=== PATIENT | male | born 1945 | race Caucasian/White ===

== ENCOUNTER 2018-06-24 18:32 | Emergency (ER) | payer OTHER ==
[~2018-06-24] VITALS: Ht 172.7 cm; Wt 113.4 kg
[~2018-06-24 18:32] MED LIST: ASPI-1155 PO; BENA40TA65 PO; CELE200C PO; CIPR-211 PO; ESCI10TA PO; FOLI-43 PO; LIP20 PO; LUTE1CAP4 PO; LYCO10CA2 PO; MULT PO; NEU300 PO; OMEG1CAP18 PO; OMEP20CA10 PO; OXYC-158 PO; TRAM50TA92 PO
[2018-06-24 18:35] VITALS: BP_SYST 156
[2018-06-24] MEDS ORDERED: MORPHINE 4 MG/ML INJ. SYRINGE IVP ONE (20:30)
[2018-06-24] MEDS ORDERED: NACL 0.9% 1,000 ML IV ONE (21:00)
[2018-06-24] MEDS ORDERED: ETOMIDATE 20 MG/ 10 ML VIAL (AMIDATE) IVP ONE (21:30)
[2018-06-24 23:30] VITALS: BP_SYST 142
== END 2018-06-24 23:30 | disposition home or self-care (01) ==
LOC: SED 18:32
DX: S43.014A Anterior dislocation of right humerus, initial encounter (principal); S42.291A Other displaced fracture of upper end of right humerus, initial encounter for closed fracture; W01.190A Fall on same level from slipping, tripping and stumbling with subsequent striking against furniture, initial encounter; Y93.01 Activity, walking, marching and hiking; Y92.008 Other place in unspecified non-institutional (private) residence as the place of occurrence of the external cause; Y99.8 Other external cause status
CPT/HCPCS: 23675; 73020; 73030; 96374; 99152; 99285; J3490; J7030; J2270

== ENCOUNTER 2019-06-11 11:13 | Emergency (ER) | payer OTHER ==
[~2019-06-11] VITALS: Ht 172.7 cm; Wt 117.9 kg
[~2019-06-11 11:13] MED LIST changes: -OMEP20CA10 PO; +OMEP20CA11 PO
[2019-06-11 11:25] VITALS: BP_SYST 96
[2019-06-11 11:56] LABS: BILIRUBIN,URINE NEGATIVE (NEGATIVE); BLOOD, URINE NEGATIVE (NEGATIVE); CLARITY/URINE CLEAR (CLEAR); COLOR,URINE YELLOW (YELLOW); GLUCOSE,URINE NEGATIVE (NEGATIVE); KETONES,URINE NEGATIVE (NEGATIVE); LEUKOCYTE ESTERASE ,URINE NEGATIVE (NEGATIVE); NITRITE, URINE NEGATIVE (NEGATIVE); PH,URINE 5.5 (5.0-8.0); PROTEIN URINE NEGATIVE (NEGATIVE)
[2019-06-11 12:04] LABS: BASOPHILS % (AUTO) 0.3 % (0.0-2.0); EOSINOPHILS # (AUTO) 0.1 K/uL (0.0-0.4); EOSINOPHILS % (AUTO) 1.6 % (0.0-4.0); HEMATOCRIT 41.2 % (36-54); HEMOGLOBIN 13.8 g/dL (14.0-18.0); LYMPHOCYTES # (AUTO) 1.1 K/uL (1.0-5.5); LYMPHOCYTES % (AUTO) 16.8 % (20.5-51.5); MEAN CORPUSCULAR HEMOGLOBIN 31 pg (27-31); MEAN CORPUSCULAR HGB CONC 34 % (32-36); MEAN CORPUSCULAR VOLUME 93 fL (79.0-98.0); MONOCYTES # (AUTO) 0.4 K/uL (0.0-1.0); MONOCYTES % (AUTO) 6.6 % (1.7-9.3); NEUTROPHILS # (AUTO) 4.8 K/uL (1.8-7.7); NEUTROPHILS % (AUTO) 74.7 % (40.0-70.0); PLATELET COUNT (AUTO) 116 K/uL (130-430); RED BLOOD CELL COUNT(AUTO) 4.44 MIL/uL (4.2-6.2); RED CELL DISTRIBUTION WIDTH 14.8 % (9.0-15.0); WHITE BLOOD COUNT (AUTO) 6.5 K/uL (4.8-10.8)
[2019-06-11 12:11] LABS: INR 1.2 (0.80-1.20); PROTHROMBIN TIME 12.3 SECS (9.5-12.5)
[2019-06-11 12:13] LABS: ANION GAP 9 (5-15); CALCIUM 8.9 mg/dL (8.4-11.0); CHLORIDE 108 mmol/L (98-107); CREATININE 1.66 mg/dL (0.55-1.30); GLUCOSE 155 mg/dL (70-99); POTASSIUM 4.4 mmol/L (3.5-5.1); SODIUM SERUM 142 mmol/L (136-145); UREA NITROGEN, BLOOD 34 mg/dL (8-21)
[2019-06-11 12:18] LABS: ALANINE AMINOTRANSFERASE 25 U/L (12-78); ALBUMIN 3.7 g/dL (3.4-4.8); ASPARTATE AMINOTRANSFERASE 27 U/L (10-37); TOTAL BILIRUBIN 0.9 mg/dL (0.0-1.0)
[2019-06-11 13:17] VITALS: BP_SYST 96
== END 2019-06-11 13:17 | disposition home or self-care (01) ==
LOC: SED 11:13
DX: S40.011A Contusion of right shoulder, initial encounter (principal); K21.9 Gastro-esophageal reflux disease without esophagitis; I10 Essential (primary) hypertension; Z86.79 Personal history of other diseases of the circulatory system; Z87.442 Personal history of urinary calculi; Z85.46 Personal history of malignant neoplasm of prostate; Z79.82 Long term (current) use of aspirin; Z79.899 Other long term (current) drug therapy; X58.XXXA Exposure to other specified factors, initial encounter; Y93.89 Activity, other specified; Y92.89 Other specified places as the place of occurrence of the external cause; Y99.8 Other external cause status
CPT/HCPCS: 36415; 71045; 80053; 81003; 85025; 85610-TC; 85730-TC; 99284

== ENCOUNTER 2021-05-10 15:36 | Emergency (ER) | payer BC, OTHER ==
[~2021-05-10] VITALS: Ht 172.7 cm; Wt 102.1 kg
[~2021-05-10 15:36] MED LIST changes: -CIPR-211 PO; +CIPR500T5 PO; -OMEP20CA11 PO; +OMEP20CA15 PO
[2021-05-10 16:06] VITALS: BP_SYST 132
--- NOTE | 2021-05-10 19:40 | NUR ---
CALLED PT NAME IN THE WR,NO RESPONSE.
--- NOTE | 2021-05-10 19:45 | NUR ---
CALLED PT NAME IN THE WR,NO RESPONSE.
--- NOTE | 2021-05-10 19:50 | NUR ---
CALLED PT NAME IN THE WR,NO RESPONSE.
== END 2021-05-10 19:50 | disposition left against medical advice (07) ==
LOC: SED 15:36
DX: R07.1 Chest pain on breathing (principal); Z53.21 Procedure and treatment not carried out due to patient leaving prior to being seen by health care provider
CPT/HCPCS: 71045

== ENCOUNTER 2021-07-14 15:49 | Emergency (ER) | payer BC ==
[~2021-07-14] VITALS: Ht 167.6 cm; Wt 99.8 kg
[2021-07-14 16:00] VITALS: BP_SYST 127
[2021-07-14 19:00] VITALS: BP_SYST 118
[2021-07-28] MEDS ORDERED: COMBIGAN OP (07:46)
[2021-07-28] MEDS ORDERED: XALEYE OP (07:46)
== END 2021-07-14 19:01 | disposition home or self-care (01) ==
LOC: SED 15:49
DX: S72.401A Unspecified fracture of lower end of right femur, initial encounter for closed fracture (principal); M25.561 Pain in right knee; I10 Essential (primary) hypertension; K21.9 Gastro-esophageal reflux disease without esophagitis; Z79.899 Other long term (current) drug therapy; W18.39XA Other fall on same level, initial encounter; Y93.89 Activity, other specified; Y92.89 Other specified places as the place of occurrence of the external cause; Y99.8 Other external cause status
CPT/HCPCS: 73564; 99283

== ENCOUNTER 2022-08-22 17:16 | Inpatient (IN) | payer OTHER ==
[~2022-08-22] VITALS: Ht 170.2 cm; Wt 112.9 kg
[~2022-08-22 17:16] MED LIST changes: +COMBIGAN OP; +XALEYE OP
[2022-08-22 20:04] VITALS: BP_SYST 88
--- NOTE | 2022-08-22 20:49 | NUR ---
Patient wheeled to bed 4 for evaluation and treatment
--- NOTE | 2022-08-22 20:49 | NUR ---
ER Dr.Dela Sofia at bedside examining patient.
[2022-08-22] MEDS ORDERED: CEFEPIME 1 GM in D5W 50 ML IV ONE (21:00)
[2022-08-22] MEDS ORDERED: NS 1000 ML IV.SOLN IV ONE (21:00)
[2022-08-22] MEDS ORDERED: NS 500 ML IV ONE (21:00)
--- NOTE | 2022-08-22 21:00 | NUR ---
# 22 gauge angiocath placed to RIGHT HAND. Use of asceptic technique. Opsite placed over site. Blood return noted. Blood for lab drawn from site. Flushed with 10 cc of normal saline. No evidence of infiltration noted. Patient tolerated well. Addendum: 08/22/22 at 2304 by [email or web address] LEFT HAND
[2022-08-22] MEDS ORDERED: CEFEPIME 1 GM/VIAL (MAXIPIME) ONE (21:05)
[2022-08-22 22:47] LABS: ANION GAP 12 (5-15); CALCIUM 9.5 mg/dL (8.4-11.0); CHLORIDE 107 mmol/L (98-107); CREATININE 1.83 mg/dL (0.55-1.30); GLUCOSE 116 mg/dL (70-99); UREA NITROGEN, BLOOD 17 mg/dL (8-21)
[2022-08-22 22:48] LABS: BASOPHILS # (AUTO) 0.1 K/uL (0.0-0.2); BASOPHILS % (AUTO) 1.5 % (0.0-2.0); EOSINOPHILS % (AUTO) 0.5 % (0.0-4.0); HEMOGLOBIN 15.1 g/dL (14.0-18.0); LYMPHOCYTES # (AUTO) 0.7 K/uL (1.0-5.5); LYMPHOCYTES % (AUTO) 10.2 % (20.5-51.5); MEAN CORPUSCULAR HEMOGLOBIN 31 pg (27-31); MEAN CORPUSCULAR HGB CONC 34 % (32-36); MEAN CORPUSCULAR VOLUME 91 fL (79.0-98.0); MONOCYTES # (AUTO) 0.4 K/uL (0.0-1.0); MONOCYTES % (AUTO) 5.9 % (1.7-9.3); NEUTROPHILS # (AUTO) 5.8 K/uL (1.8-7.7); NEUTROPHILS % (AUTO) 81.9 % (40.0-70.0); PLATELET COUNT (AUTO) 121 K/uL (130-430); RED BLOOD CELL COUNT(AUTO) 4.96 MIL/uL (4.2-6.2); WHITE BLOOD COUNT (AUTO) 7.1 K/uL (4.8-10.8)
[2022-08-22 22:55] LABS: ALANINE AMINOTRANSFERASE 48 U/L (12-78); ALBUMIN 3.5 g/dL (3.4-4.8); ASPARTATE AMINOTRANSFERASE 45 U/L (10-37); TOTAL BILIRUBIN 0.8 mg/dL (0.0-1.0)
--- NOTE | 2022-08-22 22:59 | NUR ---
# 16 FR In and Out catheter with use of sterile technique. Immediate return of 50 ml DARK urine noted. Urine sample collected and sent to lab. Pt tolerated procedure WELL.Patient unable to toilet self.
--- NOTE | 2022-08-22 23:00 | NUR ---
URINE COLLECTED AND WALKED TO LAB
--- NOTE | 2022-08-22 23:03 | NUR ---
PT TAKEN TO RADIOLOGY
--- NOTE | 2022-08-22 23:48 | NUR ---
covid and flu walked to lab
[2022-08-23 00:14] LABS: BILIRUBIN,URINE 1+ (NEGATIVE); BLOOD, URINE 1+ (NEGATIVE); CLARITY/URINE CLEAR (CLEAR); COLOR,URINE YELLOW (YELLOW); GLUCOSE,URINE NEGATIVE (NEGATIVE); KETONES,URINE TRACE (NEGATIVE); LEUKOCYTE ESTERASE ,URINE NEGATIVE (NEGATIVE); NITRITE, URINE NEGATIVE (NEGATIVE); PH,URINE 6.5 (5.0-8.0); PROTEIN URINE 2+ (NEGATIVE); UROBILINOGEN,URINE 0.2 (0.2-1.0)
[2022-08-23] MEDS ORDERED: BUPR300T46 PO (00:30)
[2022-08-23] MEDS ORDERED: AMLO5TAB92 PO (00:30)
[2022-08-23] MEDS ORDERED: ATOR40TA68 PO (00:30)
[2022-08-23] MEDS ORDERED: TAMS0.4C96 PO (00:30)
[2022-08-23] MEDS ORDERED: GABA300T26 (00:30)
[2022-08-23] MEDS ORDERED: ESCI-6 PO (00:30)
[2022-08-23] MEDS ORDERED: GABAPENTIN (00:30)
[2022-08-23] MEDS ORDERED: OLAN5TAB71 PO (00:30)
[2022-08-23] MEDS ORDERED: CELE-85 PO (00:30)
[2022-08-23] MEDS ORDERED: CARV3.1246 PO (00:30)
[2022-08-23] MEDS ORDERED: OMEP40CA20 PO (00:30)
[2022-08-23 01:15] LABS: BACTERIA,URINE FEW /HPF (None Seen); MUCUS,URINE None Seen /LPF (None Seen); RBC,URINE 0-3 /HPF (0-3); WBC,URINE 0-3 /HPF (0-3)
--- NOTE | 2022-08-23 01:17 | NUR ---
Patient resting quietly. No acute distress noted. Vital signs within normal range.
[2022-08-23] MEDS ORDERED: OSELTAMIVIR PHOSPHATE 75 MG CAPSULE PO ONE (01:30)
--- NOTE | 2022-08-23 02:05 | NUR ---
Admit bed requested Patient will be admitted to care of . Admitted to TELE unit. Diagnosis UTI & INFLUENZA A Inpatient (Yes or No) YES Observation (Yes or No) NO Orientation concerns or request close to nursing station (Yes or No) NO Covid Status NEG On vent or bipap NO Isolation requirements YES Needs a sitter NO From Home (Yes or if No enter name of facility) YES Requires Dialysis (Yes or No) NO Med Rec Completed (Yes of No) YES
[2022-08-23] MEDS: NACL 0.9% 1,000 ML IV SCH ×2 (02:45→14:30)
--- NOTE | 2022-08-23 03:05 | NUR ---
Patient resting quietly. No acute distress noted. Vital signs within normal range.
--- NOTE | 2022-08-23 05:26 | NUR ---
Patient resting quietly. No acute distress noted. Vital signs within normal range. No concerns at this time.
--- NOTE | 2022-08-23 07:13 | NUR ---
TRANSFER OF CARE AT THIS TIME, REPORT GIVEN TO BRENDEN MCCORMICK
--- NOTE | 2022-08-23 07:20 | NUR ---
PT STABLE. RESUMED CARE AND TOOK REPORT FROM VICKI WILCOX.
--- NOTE | 2022-08-23 11:46 | NUR ---
Patient will be admitted to care of DR HOLLIDAY. Admitted to TELE unit. Will go to room 116B. Belongings list completed. Complete and up to date summary report printed. SBAR report to be given at bedside with opportunity for questions.
[2022-08-23 12:28] VITALS: BP_SYST 145
[2022-08-23] MEDS ORDERED: ONDANSETRON HCL 4 MG/2 ML VIAL IVP PRN (13:00)
[2022-08-23 16:00] VITALS: BP_SYST 138; BP_SYST 145
[2022-08-23] MEDS ORDERED: OMEPRAZOLE Non-Formulary 20 MG CAPSULE.DR PO SCH ×2 (18:15→18:30)
[2022-08-23] MEDS ORDERED: TAMSULOSIN HCL 0.4 MG CAP PO SCH (18:15)
[2022-08-23] MEDS ORDERED: BUPROPION HCL PO SCH (18:30)
--- NOTE | 2022-08-23 18:41 | NUR ---
SPOKE WITH PT AND OBTAINED MED LIST REVIEWED MED LIST WITH DR HOLLIDAY MEDICATIONS RECONCILED ORDERED
[2022-08-23] MEDS ORDERED: COMMUNICATION ORDER XX ONE (19:15)
--- NOTE | 2022-08-23 19:30 | NUR ---
OPENING NOTE Pt is awake lying in bed. No s/s of respiratory distress. Breathing even and unlabored on RA. IV site intact and patent with fluids running at ordered rate. Fall and safety precautions in place with bed in lowest position, bed alarm on, and call light within reach
[2022-08-23 20:00] VITALS: BP_SYST 132
[2022-08-23] MEDS ORDERED: ESCITALOPRAM OXALATE 10 MG TABLET PO SCH ×2 (21:00)
[2022-08-23] MEDS ORDERED: OLANZapine 5 MG TABLET PO SCH (21:00)
[2022-08-23] MEDS ORDERED: BENAZEPRIL HCL 20 MG TABLET (LOTENSIN) PO SCH ×2 (21:00)
[2022-08-23] MEDS ORDERED: CARVEDILOL 3.125 MG TABLET (COREG) PO SCH (21:00)
[2022-08-23] MEDS: OSELTAMIVIR PHOSPHATE 6 MG/1 ML, 60 ML SUSP PO SCH (21:00)
[2022-08-23] MEDS: CEFEPIME 1 GM in D5W 50 ML IV SCH (21:37)
[2022-08-23] MEDS: OLANZapine 5 MG TABLET PO SCH (21:38)
[2022-08-23] MEDS: lisinopriL 20 MG TABLET PO SCH (21:38)
[2022-08-23] MEDS: CARVEDILOL 3.125 MG TABLET (COREG) PO SCH (21:39)
[2022-08-24] VITALS: BP_SYST 153
--- NOTE | 2022-08-24 00:15 | NUR ---
ROUNDS Pt lying in bed. Incontinent of urine, changed and reposition. No s/s of acute distress. Fall and safety checks in place
--- NOTE | 2022-08-24 02:57 | NUR ---
CONSULTATION PAGED REASON FOR CONSULTATION: ac on ckd WAS CONSULT CALLED? Y PERSON WHO WAS NOTIFIED: Maribel CONSULTING PHYSICIAN: Dr. Subramanian (Dr. Mak is credit administration manager) REQUESTING PHYSICIAN: Dr. Zapata
[2022-08-24] MEDS: NACL 0.9% 1,000 ML IV SCH (03:00)
[2022-08-24 06:58] LABS: BASOPHILS % (AUTO) 0.4 % (0.0-2.0); EOSINOPHILS # (AUTO) 0.1 K/uL (0.0-0.4); EOSINOPHILS % (AUTO) 1.4 % (0.0-4.0); HEMATOCRIT 43.1 % (36-54); HEMOGLOBIN 14.5 g/dL (14.0-18.0); LYMPHOCYTES # (AUTO) 1.1 K/uL (1.0-5.5); MEAN CORPUSCULAR HEMOGLOBIN 31 pg (27-31); MEAN CORPUSCULAR HGB CONC 34 % (32-36); MEAN CORPUSCULAR VOLUME 91 fL (79.0-98.0); MONOCYTES # (AUTO) 0.5 K/uL (0.0-1.0); MONOCYTES % (AUTO) 8.2 % (1.7-9.3); NEUTROPHILS # (AUTO) 4.2 K/uL (1.8-7.7); PLATELET COUNT (AUTO) 128 K/uL (130-430); RED BLOOD CELL COUNT(AUTO) 4.73 MIL/uL (4.2-6.2); RED CELL DISTRIBUTION WIDTH 15.2 % (9.0-15.0); WHITE BLOOD COUNT (AUTO) 5.9 K/uL (4.8-10.8)
--- NOTE | 2022-08-24 07:22 | NUR ---
CLOSING NOTE Pt is awake lying in bed. No s/s of respiratory distress. Breathing even and unlabored on RA. IV site intact and patent with fluids running at ordered rate. All needs met throughout shift. Fall and safety precautions in place with bed in lowest position, bed alarm on, and call light within reach
[2022-08-24 07:30] VITALS: BP_SYST 146
--- NOTE | 2022-08-24 07:30 | NUR ---
OPENING NOTE Patient in bed resting. A/O x 3, Kazakh speaking, Hard of Hearing, legally blind. No pain, no SOB, no distress noted at this time. IV to R hand 22 g, patent on infusion pump. All needs met at this time, bed locked in lowest position, call light within reach. Will continue to monitor.
[2022-08-24 07:48] LABS: ANION GAP 8 (5-15); CALCIUM 8.9 mg/dL (8.4-11.0); CHLORIDE 108 mmol/L (98-107); GLUCOSE 95 mg/dL (70-99); UREA NITROGEN, BLOOD 15 mg/dL (8-21)
[2022-08-24 07:51] LABS: ALANINE AMINOTRANSFERASE 46 U/L (12-78); ALBUMIN 3.7 g/dL (3.4-4.8); ASPARTATE AMINOTRANSFERASE 44 U/L (10-37); TOTAL BILIRUBIN 0.9 mg/dL (0.0-1.0)
[2022-08-24] MEDS: TAMSULOSIN HCL 0.4 MG CAP PO SCH (08:21)
[2022-08-24] MEDS: buPROPion HCL 150 MG XL TAB PO SCH (08:22)
[2022-08-24] MEDS: MULTIVITAMINS TAB 1 TABLET PO SCH (08:22)
[2022-08-24] MEDS: PANTOPRAZOLE SODIUM 40 MG TAB PO SCH (08:22)
[2022-08-24] MEDS: ASCORBIC ACID 500 MG TABLET PO SCH (08:22)
[2022-08-24] MEDS: CLOPIDOGREL BISULFATE 75 MG TABLET PO SCH (08:22)
[2022-08-24] MEDS: lisinopriL 20 MG TABLET PO SCH ×2 (08:22→21:22)
[2022-08-24] MEDS: OSELTAMIVIR PHOSPHATE 6 MG/1 ML, 60 ML SUSP PO SCH ×2 (08:23→21:00)
[2022-08-24] MEDS: CARVEDILOL 3.125 MG TABLET (COREG) PO SCH ×2 (08:23→21:21)
[2022-08-24] MEDS ORDERED: ATORVASTATIN 20 MG TABLET PO SCH (09:00)
[2022-08-24] MEDS ORDERED: CITALOPRAM HYDROBROMIDE 20 MG TABLET PO SCH (09:00)
[2022-08-24] MEDS ORDERED: MULTIVITAMINS TAB 1 TABLET PO SCH (09:00)
[2022-08-24 10:54] VITALS: BP_SYST 148
--- NOTE | 2022-08-24 12:00 | NUR ---
Patient Rounds Patient in bed resting. No pain, no SOB, no distress noted at this time. All needs met at this time, bed locked in lowest position, call light within reach. Will continue to monitor.
[2022-08-24 17:16] VITALS: BP_SYST 137
[2022-08-24] MEDS: RIVAROXABAN 15 MG TABLET PO SCH (17:28)
--- NOTE | 2022-08-24 18:48 | NUR ---
CLOSING NOTE Patient in bed resting. A/O x 3, Mongolian speaking, Hard of Hearing, legally blind. No pain, no SOB, no distress noted at this time. IV to R hand 22 g, patent on infusion pump. All needs met at this time, bed locked in lowest position, call light within reach. Will endorse to medical tech nurse.
--- NOTE | 2022-08-24 19:00 | NUR ---
RECEIVED PT IN BED.AOX3.ON RA.NOT IN RESPIRATORY DISTRESS NOTED.NO COMPLAINT OF PAIN NOTED.IVL R HAND G 22,PATENT AND INTACT.BED IN LOWEST POSITION.BEDSIDE TABLE AND CALL LIGHT ARE WITHIN REACH.ALL NEEDS ARE MET AT THIS TIME.
[2022-08-24 20:00] VITALS: BP_SYST 134
[2022-08-24] MEDS ORDERED: BRIMONIDINE TAR. 0.2%/TIMOLOL 0.5% EYE DROPS 5 ML OP SCH (21:00)
--- NOTE | 2022-08-24 21:00 | NUR ---
SCHEDULED MEDICATIONS GIVEN ORDERED.
[2022-08-24] MEDS: CEFEPIME 1 GM in D5W 50 ML IV SCH (21:20)
[2022-08-24] MEDS: LATANOPROST 2.5 ML DROPS (XALATAN) OP SCH (21:20)
[2022-08-24] MEDS: TIMOLOL MALEATE 0.5% OPHTHALMIC DROPS 5 ML OP SCH (21:20)
[2022-08-24] MEDS: BRIMONIDINE TARTRATE 0.2% 5 mL EYE DROPS OP SCH (21:20)
[2022-08-24] MEDS: OLANZapine 5 MG TABLET PO SCH (21:22)
[2022-08-24] MEDS: GABAPENTIN 300 MG CAPSULE PO SCH (21:22)
[2022-08-24] MEDS: traMADol HCL HCL 50 MG TABLET (ULTRAM) PO SCH (21:23)
--- NOTE | 2022-08-25 | NUR ---
PT IS ASLEEP.NOT IN RESPIRATORY DISTRESS NOTED
[2022-08-25 00:13] VITALS: BP_SYST 127
--- NOTE | 2022-08-25 04:00 | NUR ---
CHANGED AND REPOSITIONED PT.ALL NEEDS ARE MET AT THIS TIME.
--- NOTE | 2022-08-25 06:42 | NUR ---
PT HAS EVEN AND UNLABORED BREATHING NOTED.OBSERVED SAFETY PRECAUTIONS.BED IN LOWEST POSITION.BEDSIDE TABLE AND CALL LIGHT ARE WITHIN REACH.
[2022-08-25] MEDS ORDERED: OMEPRAZOLE Non-Formulary 20 MG CAPSULE.DR PO SCH (07:00)
[2022-08-25 07:35] VITALS: BP_SYST 175
[2022-08-25] MEDS ORDERED: ESCITALOPRAM OXALATE 10 MG TABLET PO SCH (09:00)
[2022-08-25] MEDS ORDERED: amLODIPine BESYLATE 5 MG TABLET PO SCH (09:00)
[2022-08-25] MEDS ORDERED: ATORVASTATIN 20 MG TABLET PO SCH (09:00)
[2022-08-25] MEDS: OSELTAMIVIR PHOSPHATE 6 MG/1 ML, 60 ML SUSP PO SCH ×2 (09:49→22:57)
[2022-08-25] MEDS: lisinopriL 20 MG TABLET PO SCH ×2 (09:50→22:45)
[2022-08-25] MEDS: TAMSULOSIN HCL 0.4 MG CAP PO SCH (09:50)
[2022-08-25] MEDS: CLOPIDOGREL BISULFATE 75 MG TABLET PO SCH (09:50)
[2022-08-25] MEDS: CARVEDILOL 3.125 MG TABLET (COREG) PO SCH ×2 (09:50→22:46)
[2022-08-25] MEDS: ASPIRIN 81 MG TAB.CHEW PO SCH (09:51)
[2022-08-25] MEDS: ASCORBIC ACID 500 MG TABLET PO SCH (09:51)
[2022-08-25] MEDS: MULTIVITAMINS TAB 1 TABLET PO SCH (09:51)
[2022-08-25] MEDS: traMADol HCL HCL 50 MG TABLET (ULTRAM) PO SCH ×2 (09:51→22:44)
[2022-08-25] MEDS: PANTOPRAZOLE SODIUM 40 MG TAB PO SCH (09:51)
[2022-08-25] MEDS: GABAPENTIN 300 MG CAPSULE PO SCH ×2 (09:51→22:42)
[2022-08-25] MEDS: CITALOPRAM HYDROBROMIDE 20 MG TABLET PO SCH (09:51)
[2022-08-25] MEDS: ATORVASTATIN 20 MG TABLET PO SCH (09:52)
[2022-08-25] MEDS: buPROPion HCL 150 MG XL TAB PO SCH (09:52)
[2022-08-25] MEDS: BRIMONIDINE TARTRATE 0.2% 5 mL EYE DROPS OP SCH ×3 (09:53→22:54)
[2022-08-25] MEDS: TIMOLOL MALEATE 0.5% OPHTHALMIC DROPS 5 ML OP SCH ×2 (09:53→22:54)
--- NOTE | 2022-08-25 11:30 | NUR ---
My charge nurse Ana found him trying to get out of bed. Patient was redirected and told to stay in bed to press call light when in need of assistance. Patient was noted to be wet, he was cleaned and linens changed. Patient's bed was locked in lowest position with bed alarm in place and call light within reach. All needs met, safety precautions in place. Will continue to monitor.
[2022-08-25 13:04] VITALS: BP_SYST 132
--- NOTE | 2022-08-25 16:10 | NUR ---
Patient Rounds Patient in bed resting. No pain, no SOB, no distress noted at this time. All needs met at this time, bed locked in lowest position, bed alarm on, call light within reach. Will continue to monitor.
[2022-08-25 17:22] VITALS: BP_SYST 109
[2022-08-25] MEDS: RIVAROXABAN 15 MG TABLET PO SCH (17:51)
--- NOTE | 2022-08-25 18:50 | NUR ---
CLOSING NOTE Patient in bed resting. A/O x 3, Uzbek speaking, Hard of Hearing, legally blind. No pain, no SOB, no distress noted at this time. IV to R hand 22 g, patent on infusion pump. All needs met at this time, bed locked in lowest position, call light within reach. Will endorse to digital media coordinator nurse.
[2022-08-25 20:38] VITALS: BP_SYST 103
[2022-08-25] MEDS: CEFEPIME 1 GM in D5W 50 ML IV SCH (22:41)
[2022-08-25] MEDS: OLANZapine 5 MG TABLET PO SCH (22:42)
[2022-08-25] MEDS: amLODIPine BESYLATE 5 MG TABLET PO SCH (22:47)
[2022-08-25] MEDS: LATANOPROST 2.5 ML DROPS (XALATAN) OP SCH (22:55)
[2022-08-26 00:13] VITALS: BP_SYST 112
--- NOTE | 2022-08-26 08:00 | NUR ---
RN NOTES PATIENT AWAKE AND ALERT, NOT IN ACUTE DISTRESS. A.FIBRILLATION ON THE MONITOR.
[2022-08-26] MEDS: GABAPENTIN 300 MG CAPSULE PO SCH ×2 (09:58→20:35)
[2022-08-26] MEDS: TAMSULOSIN HCL 0.4 MG CAP PO SCH (09:59)
[2022-08-26] MEDS: ASCORBIC ACID 500 MG TABLET PO SCH (09:59)
[2022-08-26] MEDS: MULTIVITAMINS TAB 1 TABLET PO SCH (09:59)
[2022-08-26] MEDS: amLODIPine BESYLATE 5 MG TABLET PO SCH ×2 (10:05→20:39)
[2022-08-26] MEDS: traMADol HCL HCL 50 MG TABLET (ULTRAM) PO SCH ×2 (10:06→20:36)
[2022-08-26] MEDS: ASPIRIN 81 MG TAB.CHEW PO SCH (10:06)
[2022-08-26] MEDS: PANTOPRAZOLE SODIUM 40 MG TAB PO SCH (10:06)
[2022-08-26] MEDS: buPROPion HCL 150 MG XL TAB PO SCH (10:06)
[2022-08-26] MEDS: CARVEDILOL 3.125 MG TABLET (COREG) PO SCH ×2 (10:07→20:38)
[2022-08-26] MEDS: CITALOPRAM HYDROBROMIDE 20 MG TABLET PO SCH (10:09)
[2022-08-26] MEDS: TIMOLOL MALEATE 0.5% OPHTHALMIC DROPS 5 ML OP SCH ×2 (10:15→20:42)
[2022-08-26] MEDS: BRIMONIDINE TARTRATE 0.2% 5 mL EYE DROPS OP SCH ×3 (10:16→20:42)
[2022-08-26] MEDS: OSELTAMIVIR PHOSPHATE 6 MG/1 ML, 60 ML SUSP PO SCH ×2 (10:29→20:41)
[2022-08-26] MEDS: ATORVASTATIN 20 MG TABLET PO SCH (10:30)
[2022-08-26] MEDS: lisinopriL 20 MG TABLET PO SCH ×2 (10:30→20:40)
[2022-08-26 12:35] VITALS: BP_SYST 113
[2022-08-26 12:40] VITALS: BP_SYST 100
[2022-08-26] MEDS ORDERED: LEVO-62 PO (15:21)
--- NOTE | 2022-08-26 15:45 | NUR ---
RN NOTES FAMILY AT BEDSIDE,UPDATED ON PT PRESENT CONDITION. EXPRESSED CONCERN THAT PT IS NOT READY/STABLE TO GO HOME. DR.CHIANG TODD.
--- NOTE | 2022-08-26 16:00 | NUR ---
RN NOTES AT BEDSIDE,SPOKE TO PT FAMILY. NEUROLOGY WILL BE CONSULTED ORDERED.
[2022-08-26 16:35] VITALS: BP_SYST 111
[2022-08-26 16:40] VITALS: BP_SYST 114
--- NOTE | 2022-08-26 16:56 | NUR ---
[facility]/HCP CM MS EVANGELIST ANDRADE WAS CALLED, RE: [facility], PT. LEFT A MESSAGE. LAURA, FROM [facility]/HCP CALLED BACK FOR HOME HEALTH INFO -- [facility] [phone] FOR HOME HEALTH PT.
--- NOTE | 2022-08-26 17:09 | NUR ---
CONSULTATION PAGED/CALLED Reason for Consultation: [] ENCEPHALOPATHY Person Who was Notified: [] TEXTED CONSULT TO DR Marcell FONSECA Consulting Physician: [] DR Marcell FONSECA Career Development Coordinator/Teacher Specialty: [] NEURO Ordering Physician: [] DR BARRETT
[2022-08-26] MEDS: RIVAROXABAN 15 MG TABLET PO SCH (17:20)
--- NOTE | 2022-08-26 18:00 | NUR ---
RN NOTES REPOSITIONED FOR COMFORT, ASSISTED FOR DINNER.
[2022-08-26 20:00] VITALS: BP_SYST 98
[2022-08-26] MEDS: CEFEPIME 1 GM in D5W 50 ML IV SCH (20:34)
[2022-08-26] MEDS: OLANZapine 5 MG TABLET PO SCH (20:35)
[2022-08-26] MEDS: LATANOPROST 2.5 ML DROPS (XALATAN) OP SCH (20:41)
--- NOTE | 2022-08-26 20:47 | NUR ---
RECEIVED PT LYING IN BED, NO DISTRESS NOTED, DENIES PAIN. AAOX2, RA O2 SAT 97% DROPLET PRECAUTION MAINTAINED.
[2022-08-27 00:35] VITALS: BP_SYST 124
--- NOTE | 2022-08-27 07:54 | NUR ---
OPENING NOTES RECEIVED BEDSIDE SBAR FROM PM SHIFT NURSE, PATIENT RESTING WELL IN BED NO DISTRESS, ALL NEEDS BEING MEET, BED LOCKED AND IN LOW POSITION CALL LIGHT IN REACH. WILL CONT TO MONITOR PATIENT PER ORDERS
[2022-08-27 08:07] LABS: ALANINE AMINOTRANSFERASE 30 U/L (12-78); ALBUMIN 3.2 g/dL (3.4-4.8); ANION GAP 9 (5-15); ASPARTATE AMINOTRANSFERASE 27 U/L (10-37); CALCIUM 8.4 mg/dL (8.4-11.0); CHLORIDE 104 mmol/L (98-107); CREATININE 1.27 mg/dL (0.55-1.30); GLUCOSE 108 mg/dL (70-99); UREA NITROGEN, BLOOD 21 mg/dL (8-21)
[2022-08-27 08:18] LABS: BASOPHILS % (AUTO) 0.5 % (0.0-2.0); EOSINOPHILS # (AUTO) 0.1 K/uL (0.0-0.4); EOSINOPHILS % (AUTO) 1.1 % (0.0-4.0); HEMATOCRIT 40.8 % (36-54); LYMPHOCYTES # (AUTO) 1.5 K/uL (1.0-5.5); LYMPHOCYTES % (AUTO) 20.3 % (20.5-51.5); MEAN CORPUSCULAR HEMOGLOBIN 31 pg (27-31); MEAN CORPUSCULAR HGB CONC 34 % (32-36); MEAN CORPUSCULAR VOLUME 91 fL (79.0-98.0); MONOCYTES # (AUTO) 1.1 K/uL (0.0-1.0); MONOCYTES % (AUTO) 14.1 % (1.7-9.3); NEUTROPHILS # (AUTO) 4.9 K/uL (1.8-7.7); PLATELET COUNT (AUTO) 107 K/uL (130-430); RED BLOOD CELL COUNT(AUTO) 4.49 MIL/uL (4.2-6.2); RED CELL DISTRIBUTION WIDTH 14.7 % (9.0-15.0); WHITE BLOOD COUNT (AUTO) 7.6 K/uL (4.8-10.8)
[2022-08-27 08:32] VITALS: BP_SYST 110
[2022-08-27] MEDS: ATORVASTATIN 20 MG TABLET PO SCH (09:37)
[2022-08-27] MEDS: GABAPENTIN 300 MG CAPSULE PO SCH ×2 (09:37→20:43)
[2022-08-27] MEDS: lisinopriL 20 MG TABLET PO SCH ×2 (09:38→23:14)
[2022-08-27] MEDS: traMADol HCL HCL 50 MG TABLET (ULTRAM) PO SCH ×2 (09:39→20:43)
[2022-08-27] MEDS: amLODIPine BESYLATE 5 MG TABLET PO SCH ×2 (09:39→21:00)
[2022-08-27] MEDS: CARVEDILOL 3.125 MG TABLET (COREG) PO SCH ×2 (09:40→20:44)
[2022-08-27] MEDS: MULTIVITAMINS TAB 1 TABLET PO SCH (09:41)
[2022-08-27] MEDS: CITALOPRAM HYDROBROMIDE 20 MG TABLET PO SCH (09:41)
[2022-08-27] MEDS: buPROPion HCL 150 MG XL TAB PO SCH (09:41)
[2022-08-27] MEDS: ASCORBIC ACID 500 MG TABLET PO SCH (09:41)
[2022-08-27] MEDS: PANTOPRAZOLE SODIUM 40 MG TAB PO SCH (09:41)
[2022-08-27] MEDS: ASPIRIN 81 MG TAB.CHEW PO SCH (09:42)
[2022-08-27] MEDS: TAMSULOSIN HCL 0.4 MG CAP PO SCH (09:42)
[2022-08-27] MEDS: OSELTAMIVIR PHOSPHATE 6 MG/1 ML, 60 ML SUSP PO SCH ×2 (09:48→21:00)
[2022-08-27] MEDS: TIMOLOL MALEATE 0.5% OPHTHALMIC DROPS 5 ML OP SCH ×2 (09:49→21:00)
[2022-08-27] MEDS: BRIMONIDINE TARTRATE 0.2% 5 mL EYE DROPS OP SCH ×3 (09:49→21:00)
--- NOTE | 2022-08-27 12:30 | NUR ---
PATIENT REMAINS STABLE, VERY CONFUSED SEEING DOGS/PUPPIES, ASKING ME TO TAKE TO TRASH OUT TO THE TRAILER, VS WNL, WILL CONT TO MONITOR PT BED LOCKED AND IN LOW POSITION CALL LIGHT IN REACH.
[2022-08-27] MEDS: RIVAROXABAN 15 MG TABLET PO SCH (18:13)
[2022-08-27 18:31] VITALS: BP_SYST 114
[2022-08-27 19:20] VITALS: BP_SYST 129
--- NOTE | 2022-08-27 19:20 | NUR ---
PM ASSESSMENT; -Pt is a/ox1-2 slurred speech, resting in bed comfortably. Droplet isolation maintains. Fall precaution in place. Unable to discuss poc d/t cognitive limitation, no family available. Bed alarmed, side rails x3, call light w/in reach. Cont to monitor pt.
[2022-08-27] MEDS: OLANZapine 5 MG TABLET PO SCH (20:43)
[2022-08-27] MEDS: LATANOPROST 2.5 ML DROPS (XALATAN) OP SCH (21:00)
[2022-08-27] MEDS: CEFEPIME 1 GM in D5W 50 ML IV SCH (23:17)
[2022-08-28] VITALS: BP_SYST 98
--- NOTE | 2022-08-28 01:46 | NUR ---
ROUNDS; -Pt is asleep. No s/s any pain,sob,or any acute distress noted. All side railsx3, Bed alarmed, side rails x3, call light w/in reach. Cont to monitor pt.
--- NOTE | 2022-08-28 06:53 | NUR ---
CLOSING NOTES; -Pt is resting in bed comfortably. NO s/s any pain,sob,or any acute distress noted. Maintains droplet isolation entire shift. Bed alarmed, side rails x3, call light w/in reach. Pt's condition stable entire shift and no seizure activity noted. Will endorse to next nurse to cont care.
--- NOTE | 2022-08-28 07:30 | NUR ---
OPENING NOTES: RECEIVED BEDSIDE SBAR FROM PM SHIFT NURSE PATIENT RESTING WELL, NO DISTRESS BED LOCKED AND AT LOW POSITION CALL LIGHT IN REACH WILL CONT TO MONITOR PATIENT PER ORDERS.
[2022-08-28 08:04] VITALS: BP_SYST 109
[2022-08-28] MEDS: buPROPion HCL 150 MG XL TAB PO SCH (10:00)
[2022-08-28] MEDS: ASPIRIN 81 MG TAB.CHEW PO SCH (10:00)
[2022-08-28] MEDS: PANTOPRAZOLE SODIUM 40 MG TAB PO SCH (10:00)
[2022-08-28] MEDS: CITALOPRAM HYDROBROMIDE 20 MG TABLET PO SCH (10:01)
[2022-08-28] MEDS: ASCORBIC ACID 500 MG TABLET PO SCH (10:01)
[2022-08-28] MEDS: TAMSULOSIN HCL 0.4 MG CAP PO SCH (10:01)
[2022-08-28] MEDS: MULTIVITAMINS TAB 1 TABLET PO SCH (10:01)
[2022-08-28] MEDS: traMADol HCL HCL 50 MG TABLET (ULTRAM) PO SCH ×2 (10:01→20:50)
[2022-08-28] MEDS: ATORVASTATIN 20 MG TABLET PO SCH (10:01)
[2022-08-28] MEDS: CARVEDILOL 3.125 MG TABLET (COREG) PO SCH ×2 (10:02→20:51)
[2022-08-28] MEDS: lisinopriL 20 MG TABLET PO SCH ×2 (10:02→20:50)
[2022-08-28] MEDS: OSELTAMIVIR PHOSPHATE 6 MG/1 ML, 60 ML SUSP PO SCH (10:03)
[2022-08-28] MEDS: GABAPENTIN 300 MG CAPSULE PO SCH ×2 (10:03→20:51)
[2022-08-28] MEDS: amLODIPine BESYLATE 5 MG TABLET PO SCH ×2 (10:03→20:51)
[2022-08-28] MEDS: BRIMONIDINE TARTRATE 0.2% 5 mL EYE DROPS OP SCH ×3 (10:12→21:00)
[2022-08-28] MEDS: TIMOLOL MALEATE 0.5% OPHTHALMIC DROPS 5 ML OP SCH ×2 (10:13→21:00)
[2022-08-28 12:30] VITALS: BP_SYST 122
--- NOTE | 2022-08-28 12:30 | NUR ---
ROUNDS: PATIENT REMAIN STABLE NO DISTRESS RESTING WELL IN BED BED LOCKED AND IN LOW POSITION CALL LIGHT IN REACH WILL CONT TO MONITOR PATIENT
--- NOTE | 2022-08-28 18:33 | NUR ---
CLOSING NOTES: PATIENT REMAINS STABLE NO DISTRESS, ALL NEEDS WHERE MEET PER ORDERS, BED LOCKED AND AT LOW POSITION CALL LIGHT IN REACH WILL GIVE PM SHIFT NURSE BEDSIDE SBAR.
[2022-08-28 18:35] VITALS: BP_SYST 115
[2022-08-28] MEDS: RIVAROXABAN 15 MG TABLET PO SCH (18:46)
[2022-08-28 19:46] VITALS: BP_SYST 135
[2022-08-28] MEDS: OLANZapine 5 MG TABLET PO SCH (20:50)
[2022-08-28] MEDS: CEFEPIME 1 GM in D5W 50 ML IV SCH (20:52)
[2022-08-28] MEDS: LATANOPROST 2.5 ML DROPS (XALATAN) OP SCH (21:00)
[2022-08-29] VITALS: BP_SYST 128
--- NOTE | 2022-08-29 07:29 | NUR ---
OPENING NOTES: RECEIVED BEDSIDE SBAR FROM PM SHIFT NURSE, PATIENT REMAINS STABLE RESTING WELL IN BED, NO DISTRESS ALL NEEDS BEING KNOWN, BED AT LOCKED AND LOW POSITION CALL LIGHT IN REACH
[2022-08-29 08:19] VITALS: BP_SYST 158
[2022-08-29] MEDS: TAMSULOSIN HCL 0.4 MG CAP PO SCH (10:04)
[2022-08-29] MEDS: ASCORBIC ACID 500 MG TABLET PO SCH (10:04)
[2022-08-29] MEDS: lisinopriL 20 MG TABLET PO SCH ×2 (10:05→21:00)
[2022-08-29] MEDS: amLODIPine BESYLATE 5 MG TABLET PO SCH ×2 (10:05→21:00)
[2022-08-29] MEDS: MULTIVITAMINS TAB 1 TABLET PO SCH (10:06)
[2022-08-29] MEDS: ASPIRIN 81 MG TAB.CHEW PO SCH (10:06)
[2022-08-29] MEDS: buPROPion HCL 150 MG XL TAB PO SCH (10:06)
[2022-08-29] MEDS: CARVEDILOL 3.125 MG TABLET (COREG) PO SCH ×2 (10:06→21:00)
[2022-08-29] MEDS: PANTOPRAZOLE SODIUM 40 MG TAB PO SCH (10:07)
[2022-08-29] MEDS: CITALOPRAM HYDROBROMIDE 20 MG TABLET PO SCH (10:07)
[2022-08-29] MEDS: traMADol HCL HCL 50 MG TABLET (ULTRAM) PO SCH ×2 (10:07→21:00)
[2022-08-29] MEDS: GABAPENTIN 300 MG CAPSULE PO SCH ×2 (10:09→21:00)
[2022-08-29] MEDS: ATORVASTATIN 20 MG TABLET PO SCH (10:18)
[2022-08-29] MEDS: TIMOLOL MALEATE 0.5% OPHTHALMIC DROPS 5 ML OP SCH ×2 (10:23→21:00)
[2022-08-29] MEDS: BRIMONIDINE TARTRATE 0.2% 5 mL EYE DROPS OP SCH ×3 (10:24→21:00)
[2022-08-29 12:25] VITALS: BP_SYST 117
--- NOTE | 2022-08-29 12:30 | NUR ---
ROUNDS: PATIENT REMAINS STABLE NO DISTRESS ABLE TO MAKE NEEDS KNOWN, BED LOCKED AND AT LOW POSITION CALL LIGHT IN REACH, FAMILY AT BEDSIDE WILL CONT TO MONITOR PATIENT PER ORDERS.
--- NOTE | 2022-08-29 12:30 | NUR ---
CALLED SARIKA WETZEL. PATIENT WAS BEING AGGRESSIVE TRYING TO GET OUT OF BED, HITTING AND KICKING THE NURSES/TRASHMAN'S PAGED DR HOLLIDAY, DR JASSO CALLED BACK NEW ORDERS. GIVE ATIVAN 1MG IM STAT THEN GIVEN ATIVAN 1 MG IV PRN Q4-6 HOURS.
[2022-08-29] MEDS ORDERED: LORazepam 2 MG/ML VIAL ONE (12:44)
[2022-08-29] MEDS ORDERED: LORazepam 2 MG/ML VIAL IM ONE (12:45)
[2022-08-29] MEDS ORDERED: LORazepam 2 MG/ML VIAL IVP PRN (12:45)
[2022-08-29 16:25] VITALS: BP_SYST 136
--- NOTE | 2022-08-29 17:05 | NUR ---
PATIENT IS STARTING TO GET AGGRESSIVE AGAIN SPOKE WITH DR MG GALLO TO GIVE ATIVAN 1MG IV Q 12 HOURS
[2022-08-29] MEDS: RIVAROXABAN 15 MG TABLET PO SCH (18:00)
--- NOTE | 2022-08-29 19:40 | NUR ---
OPENING NOTE Received report from day nurse. Stated that patient became aggressive and combative and pulled out IV. Ativan was given and patient is asleep. and daughter are at bedside and have provided useful background information. Family have broughtin pt's home bipap machine which is running and will continue to run all night. Vital signs taken and patient show no signs of distress or pain. MD aware of behavior and of bipap.
[2022-08-29 20:00] VITALS: BP_SYST 114
[2022-08-29] MEDS: CEFEPIME 1 GM in D5W 50 ML IV SCH (21:00)
[2022-08-29] MEDS: LATANOPROST 2.5 ML DROPS (XALATAN) OP SCH (21:00)
[2022-08-29] MEDS: OLANZapine 5 MG TABLET PO SCH (21:00)
--- NOTE | 2022-08-29 23:20 | NUR ---
MEDICATION NOT GIVEN Patient is still asleep and d/t Ativan earlier, may be too sedated to swallow medication. Evening medications withheld, IV antibiotic not administered d/t no IV access - pt pulled out IV.
[2022-08-30 05:00] VITALS: BP_SYST 136
[2022-08-30 08:00] VITALS: BP_SYST 136
--- NOTE | 2022-08-30 08:00 | NUR ---
OPENING NOTE Patient in bed resting, no sign of distress. Patient complaining of mild generalized pain. Patient does not have IV access at this time, patient is confused and consistently pulling at lines. Patient is confused and threw his breakfast and water on the floor. Comfort needs met, linen changed and patient bathed. Patient updated on his plan of care, unable to verbalize understanding at this time. All needs met at this time and safety checks made.
[2022-08-30] MEDS: TIMOLOL MALEATE 0.5% OPHTHALMIC DROPS 5 ML OP SCH ×2 (09:00→20:55)
[2022-08-30] MEDS: BRIMONIDINE TARTRATE 0.2% 5 mL EYE DROPS OP SCH ×3 (09:00→20:55)
[2022-08-30] MEDS: buPROPion HCL 150 MG XL TAB PO SCH (09:14)
[2022-08-30] MEDS: ASCORBIC ACID 500 MG TABLET PO SCH (09:15)
[2022-08-30] MEDS: lisinopriL 20 MG TABLET PO SCH ×2 (09:15→20:42)
[2022-08-30] MEDS: GABAPENTIN 300 MG CAPSULE PO SCH ×2 (09:16→20:55)
[2022-08-30] MEDS: ATORVASTATIN 20 MG TABLET PO SCH (09:16)
[2022-08-30] MEDS: PANTOPRAZOLE SODIUM 40 MG TAB PO SCH (09:16)
[2022-08-30] MEDS: MULTIVITAMINS TAB 1 TABLET PO SCH (09:17)
[2022-08-30] MEDS: TAMSULOSIN HCL 0.4 MG CAP PO SCH (09:17)
[2022-08-30] MEDS: traMADol HCL HCL 50 MG TABLET (ULTRAM) PO SCH ×2 (09:17→20:55)
[2022-08-30] MEDS: CARVEDILOL 3.125 MG TABLET (COREG) PO SCH ×2 (09:18→20:40)
[2022-08-30] MEDS: ASPIRIN 81 MG TAB.CHEW PO SCH (09:19)
[2022-08-30] MEDS: CITALOPRAM HYDROBROMIDE 20 MG TABLET PO SCH (09:19)
[2022-08-30] MEDS: amLODIPine BESYLATE 5 MG TABLET PO SCH ×2 (09:19→20:41)
[2022-08-30 11:45] VITALS: BP_SYST 114
--- NOTE | 2022-08-30 12:26 | NUR ---
PETERS CATH: # 16 FR Peters catheter with 10 cc bulb inserted with use of sterile technique. Bulb inflated with 10 cc sterile water. Immediate return of 200 cc bimal urine noted. Bedside drainage bag placed below level of bladder. Pt tolerated procedure well.
--- NOTE | 2022-08-30 13:00 | NUR ---
IV RE-INSERTION: Patient does not currently have IV access. Restarted 22g on left forearm. Successful after 1 attempts. Will observe for any signs of infiltration.
[2022-08-30] MEDS ORDERED: LORazepam 2 MG/ML VIAL IVP PRN (14:15)
[2022-08-30 15:57] VITALS: BP_SYST 120
[2022-08-30] MEDS: RIVAROXABAN 15 MG TABLET PO SCH (17:59)
--- NOTE | 2022-08-30 18:30 | NUR ---
Nutrition F/U: Admitting Diagnosis UTI, Influenza A Reviewed Pertinent Medical/Surgical Hx Medical Record; COMPUTER HARDWARE TECHNICIAN; Patient Medical History Comment: Per EMR review, PMH of HTN, HLD, CAD s/p CABG, CKD and patient is blind. Pt admitted for confusion, general weakness. Dx of metabolic encephalopathy, possible sepsis, MANDI on CKD. Confused; Code akers called 08/29 Subjective Information: RD rounded to patient room and attempted to s/w patient at bedside. Patient was unable to participated in nutrition f/u as appeared to be experiencing hallucinations at time of RD visit with sheet over his head. RD attempted to reorient the patient, however he could not follow/answer RD questions. RD s/w COMPUTER HARDWARE TECHNICIAN near nursing station who reports patient has a decent appetite however, he requires 1:1 feeder for adequate PO. Per RD chart review, patient noted with LBM 08/29 x 1 and pt noted with varying PO intake (25%-100%), with 65% average x 9 meals. Current Diet Order/Nutrition Support: Na2GM, Renal x 7 days Patient/Significant Other Unable To Verbalize Education Provided Not Indicated Pertinent Medications: Celexa, Lipitor, Norvasc, Tramadol, MVI, Vit C, Plavix, Lisinopril, protonix, xarelto Pertinent Labs: Drawn 08/27 - Na/K/BG/BUN/CRE WNL, BG 108 H, Alb 3.2 L Height (Feet) 5 feet Height (Inches) 7.00 inches Weight (Pounds) 249 pounds Weight (Calculated Kilograms) 112.613021 kilograms Patient Weight 112.945 kg Body Mass Index 38.99 kg/m2 %IBW [address] [place] [address]/Adjusted Body Weight 148#/67.3kg IBW. Recent Weight Change Unable to verify Weight Status Obese Food Allergies Unable to verify Usual Diet At Home Regular Skin Integrity Comment: Arnol Score 12: 12 erythema on sacrum; no edema EMR review. Current % PO Fair (50-74%) Estimated Energy Expenditure (kcals/day) 7817-1758 (30-35kcal/kg IBW d/t obesity, sepsis) Estimated Protein Required (g/day) 54-101 (0.8-1.5g/kg IBW d/t obesity, CKD no HD, sepsis) Estimated Fluid Required (l/day) Defer to MD d/t CKD Problem/Etiology/Signs/Symptoms * Increased energy needs R/T metabolic demands AEB estimated nutritional needs for sepsis (on-going) * Food and nutrition-related knowledge deficit R/T unrestricted diet at home AEB abnormal renal function lab values (initial) Expected Outcomes/Goals Monitor appetite and PO intakes w/ goal of meeting >75% of estimated nutritional needs, labs trending WNL, normal GI function, and skin integrity/wt maintenance. Dietitian Recommendations * Continue Na2GM, Renal diet * Encourage good PO intakes, 1:1 feeding assistance at all meals * Ordered: Nepro BID Follow Up Mod Risk: F/U in 3-5 days
--- NOTE | 2022-08-30 18:31 | NUR ---
Dietitian Recommendations * Continue Na2GM, Renal diet * Encourage good PO intakes, 1:1 feeding assistance at all meals * Ordered: Nepro BID Please refer to nutrition f/u for details, thanks! CC, MPH, RDN
--- NOTE | 2022-08-30 18:53 | NUR ---
CLOSING NOTE Patient in bed resting after eating dinner, no sign of distress and patient denies pain. Patient continues to be confused and has auditory hallucinations. Attempted to reorient patient but was unsuccessful. IV site is clean, dry, intact, and saline locked. Chau catheter is patent and draining yellow urine to gravity. Patient turned q2h throughout the shift. All needs met at this time and safety checks made. Will endorse to hourly shift manager nurse.
[2022-08-30 19:30] VITALS: BP_SYST 90
--- NOTE | 2022-08-30 19:30 | NUR ---
PM ASSESSMENT; -Pt is 1-2, resting in bed comfortably. NO s/s any pain,sob,or any acute distress noted. Updated poc with spouse at bedside, she verbalized understanding. Droplet contact isolation. All side railsx3, Bed alarmed, side rails x3, call light w/in reach. Cont to monitor pt.
[2022-08-30] MEDS: OLANZapine 5 MG TABLET PO SCH (20:54)
[2022-08-30] MEDS: LATANOPROST 2.5 ML DROPS (XALATAN) OP SCH (20:56)
[2022-08-31 00:44] VITALS: BP_SYST 116
--- NOTE | 2022-08-31 06:29 | NUR ---
CLOSING NOTES; -Pt is asleep. NO s/s any pain,sob,or any acute distress noted. Pt's condition stable. Chau cath w/ gravity drains yellow urine output. Maintains contact isolation entire shift. All side railsx3, Bed alarmed, side rails x3, call light w/in reach. Will endorse to next nurse to cont care.
[2022-08-31 08:00] VITALS: BP_SYST 149
[2022-08-31] MEDS: CITALOPRAM HYDROBROMIDE 20 MG TABLET PO SCH (09:39)
[2022-08-31] MEDS: ASCORBIC ACID 500 MG TABLET PO SCH (09:39)
[2022-08-31] MEDS: MULTIVITAMINS TAB 1 TABLET PO SCH (09:39)
[2022-08-31] MEDS: ASPIRIN 81 MG TAB.CHEW PO SCH (09:39)
[2022-08-31] MEDS: GABAPENTIN 300 MG CAPSULE PO SCH ×2 (09:39→21:46)
[2022-08-31] MEDS: ATORVASTATIN 20 MG TABLET PO SCH (09:40)
[2022-08-31] MEDS: buPROPion HCL 150 MG XL TAB PO SCH (09:40)
[2022-08-31] MEDS: TAMSULOSIN HCL 0.4 MG CAP PO SCH (09:41)
[2022-08-31] MEDS: amLODIPine BESYLATE 5 MG TABLET PO SCH ×2 (09:41→21:00)
[2022-08-31] MEDS: traMADol HCL HCL 50 MG TABLET (ULTRAM) PO SCH ×2 (09:42→21:47)
[2022-08-31] MEDS: PANTOPRAZOLE SODIUM 40 MG TAB PO SCH (09:42)
[2022-08-31] MEDS: CARVEDILOL 3.125 MG TABLET (COREG) PO SCH ×2 (09:43→21:00)
[2022-08-31] MEDS: lisinopriL 20 MG TABLET PO SCH ×2 (09:43→21:00)
[2022-08-31] MEDS: BRIMONIDINE TARTRATE 0.2% 5 mL EYE DROPS OP SCH ×3 (09:43→21:48)
[2022-08-31] MEDS: TIMOLOL MALEATE 0.5% OPHTHALMIC DROPS 5 ML OP SCH ×2 (09:44→21:47)
[2022-08-31 12:42] VITALS: BP_SYST 132
--- NOTE | 2022-08-31 14:00 | NUR ---
SPOKE WITH REGARDING DISCHARGE Spoke with Dr Goins regarding patient's discharge order to DC home with home health. Awaiting up to date physical therapy note to verify if patient requires SNF placement. Addendum: 08/31/22 at 1720 by Kassandra Crump LVN Physical therapy recommends SNF placement
[2022-08-31 17:21] VITALS: BP_SYST 142
[2022-08-31] MEDS: RIVAROXABAN 15 MG TABLET PO SCH (17:28)
--- NOTE | 2022-08-31 17:31 | NUR ---
DARON Fermin regarding the possibility of discontinuing isolation precautions. Addendum: 08/31/22 at 1848 by Kassandra Crump LVN STATED TO REMOVE PATIENT FROM ISOLATION PRECAUTIONS
--- NOTE | 2022-08-31 18:10 | NUR ---
PHYSICAL THERAPY CO-SIGN The Physical Therapy Progress Notes documented by Air Bag Stripper have been reviewed. Reviewed/Co-Signed by: Yazan Canela Documentation Done by: ROSALES CARVAJAL PTA Addendum: 08/31/22 at 1810 by Yazan Canela PT Amended: Links added.
--- NOTE | 2022-08-31 19:03 | NUR ---
CLOSING NOTE Patient in bed resting, no sign of distress and patient denies pain. Chau catheter in place draining to gravity. Patient is aware he is no longer on isolation precautions. Patient has been cooperative with his care. IV site is clean, dry, intact, and saline locked. All needs met at this time and safety checks made. Endorsed to slot shift manager nurse.
[2022-08-31 20:00] VITALS: BP_SYST 107
[2022-08-31] MEDS: LATANOPROST 2.5 ML DROPS (XALATAN) OP SCH (21:00)
[2022-08-31] MEDS: OLANZapine 5 MG TABLET PO SCH (21:46)
[2022-09-01 02:35] VITALS: BP_SYST 110
--- NOTE | 2022-09-01 05:17 | NUR ---
PATIENT IS ALERT, ORIENTED WITH FEW PERIODS OF CONFUSION, HE IS COOPERATIVE WITH NURSING CARE. HE RECEIVED SCHEDULED DOSE OF ULTRAM, HE DENIED PAIN ALL SHIFT. ALL NEEDS ARE ANTICIPATED. CAUTI PRECAUTIONS MAINTAINED WITH PETERS CATHETER USE, VITALS ARE STABLE.
--- NOTE | 2022-09-01 07:33 | NUR ---
OPENING NOTE: RECEIVED BEDSIDE SBAR FROM PM SHIFT NURSE PATIENT IS RESTING WELL IN BED NO DISTRESS, BED AT LOCKED AND LOW POSITION CALL LIGHT IN REACH, ALL NEEDS BEING KNOWN, WILL CONT TO MONITOR PER ORDERS.
[2022-09-01] MEDS: buPROPion HCL 150 MG XL TAB PO SCH (09:51)
[2022-09-01] MEDS: GABAPENTIN 300 MG CAPSULE PO SCH (09:51)
[2022-09-01] MEDS: ASCORBIC ACID 500 MG TABLET PO SCH (09:52)
[2022-09-01] MEDS: CITALOPRAM HYDROBROMIDE 20 MG TABLET PO SCH (09:52)
[2022-09-01] MEDS: ATORVASTATIN 20 MG TABLET PO SCH (09:52)
[2022-09-01] MEDS: amLODIPine BESYLATE 5 MG TABLET PO SCH (09:54)
[2022-09-01] MEDS: PANTOPRAZOLE SODIUM 40 MG TAB PO SCH (09:55)
[2022-09-01] MEDS: ASPIRIN 81 MG TAB.CHEW PO SCH (09:55)
[2022-09-01] MEDS: TAMSULOSIN HCL 0.4 MG CAP PO SCH (09:55)
[2022-09-01] MEDS: MULTIVITAMINS TAB 1 TABLET PO SCH (09:55)
[2022-09-01] MEDS: CARVEDILOL 3.125 MG TABLET (COREG) PO SCH (09:56)
[2022-09-01] MEDS: traMADol HCL HCL 50 MG TABLET (ULTRAM) PO SCH (09:56)
[2022-09-01] MEDS: lisinopriL 20 MG TABLET PO SCH (10:02)
[2022-09-01] MEDS: TIMOLOL MALEATE 0.5% OPHTHALMIC DROPS 5 ML OP SCH (10:04)
[2022-09-01] MEDS: BRIMONIDINE TARTRATE 0.2% 5 mL EYE DROPS OP SCH ×2 (10:04→15:00)
[2022-09-01 13:49] VITALS: BP_SYST 110
--- NOTE | 2022-09-01 17:04 | NUR ---
REPORT CALLED TO [facility] [phone] SPOKE WITH NIR WILCOX. TRANSPORT WILL BE HER AT @1700ISH. FAMILY AT BEDSIDE AWARE OF TRANSFER SPOKE WITH AT BEDSIDE
[2022-09-01 17:11] VITALS: BP_SYST 132
[2022-09-01 17:41] VITALS: BP_SYST 92
--- NOTE | 2022-09-01 18:31 | NUR ---
CLOSING NOTES: PATIENT REMAINS STABLE NO DISTRESS, CALL LIGHT IN REACH, FAMILY AT BEDSIDE ALL NEEDS MEET TODAY. WILL GIVE PM SHIFT NURSE BEDSIDE SBAR. BED AT LOW AND LOCKED POSITION.
[2022-09-01 20:00] VITALS: BP_SYST 111
--- NOTE | 2022-09-01 20:45 | NUR ---
PT TRANSFERRED Report given to Aly WILCOX at [facility] by day shift nurse. Transfer packet with Transfer Orders and Medication Reconciliation form given to EMT with report. Exitcare provided. [facility] ID band removed. IV catheter and Chau catheter in place for transfer. All belongings sent with patient. Patient left floor via gurney escorted by EMT ([facility]) in no distress.
== END 2022-09-01 20:45 | DRG 871 ==
LOC: SED 17:16 → STU 08-23 01:58
PROVIDERS: ADMIT Internal Medicine; ATTEND Internal Medicine
DX: A41.9 Sepsis, unspecified organism (principal); G92.8 Other toxic encephalopathy; N39.0 Urinary tract infection, site not specified; N17.9 Acute kidney failure, unspecified; E78.5 Hyperlipidemia, unspecified; J10.1 Influenza due to other identified influenza virus with other respiratory manifestations; I12.9 Hypertensive chronic kidney disease with stage 1 through stage 4 chronic kidney disease, or unspecified chronic kidney disease; E11.22 Type 2 diabetes mellitus with diabetic chronic kidney disease; N18.30 Chronic kidney disease, stage 3 unspecified; Z20.822 Contact with and (suspected) exposure to COVID-19; I25.10 Atherosclerotic heart disease of native coronary artery without angina pectoris; Z95.1 Presence of aortocoronary bypass graft; Z88.8 Allergy status to other drugs, medicaments and biological substances; Z79.899 Other long term (current) drug therapy; Z85.46 Personal history of malignant neoplasm of prostate; Z79.891 Long term (current) use of opiate analgesic; Z68.39 Body mass index [BMI] 39.0-39.9, adult; Z79.82 Long term (current) use of aspirin
CPT/HCPCS: 36415; 70450-TC; 71045; 76376; 80053; 81000; 83605; 84484; 85025; 87040; 87086; 93005; 96365; 97110-GP; 97112-GP; 97116-GP; 97530-GP; 99291; G0378; G9035; J0692; J2060; J7060

== ENCOUNTER 2022-09-29 15:59 | Emergency (ER) | payer OTHER ==
[~2022-09-29] VITALS: Ht 170.2 cm; Wt 95.3 kg
[~2022-09-29 15:59] MED LIST changes: +AMLO5TAB92 PO; +ATOR40TA68 PO; +BUPR300T46 PO; +CARV3.1246 PO; +CELE-85 PO; +ESCI-6 PO; +GABA300T26; +GABAPENTIN; +LEVO-62 PO; +OLAN5TAB71 PO; +OMEP40CA20 PO; +TAMS0.4C96 PO
--- NOTE | 2022-09-29 17:00 | NUR ---
Placed in room #5 . Placed on house furnishings supervisor, blood pressure machine and pulse oximeter. To gown for exam. Side rails up.
[2022-09-29 17:02] VITALS: BP_SYST 128
--- NOTE | 2022-09-29 17:15 | NUR ---
ER at bedside examining patient.
[2022-09-29] MEDS ORDERED: ACET-73 PO ×2 (18:00)
[2022-09-29] MEDS ORDERED: ACET325T PO (18:00)
--- NOTE | 2022-09-29 18:22 | NUR ---
CD WAS REQUESTED FROM RADIOLOGY
--- NOTE | 2022-09-29 19:12 | NUR ---
Report received from BRENDEN Boyd. Addendum: 09/29/22 at 2205 by [email or web address] Patient discharged from [facility] ER. Transportation will be made for transport back to facility.
--- NOTE | 2022-09-29 20:00 | NUR ---
No change from prevoius assessment.
--- NOTE | 2022-09-29 22:00 | NUR ---
No change from previous assessment. Patient informed no medical transport until tomorrow. Patient resting quietly in [facility].
--- NOTE | 2022-09-30 | NUR ---
No change from previous assessment. Patient sleeping in [facility]. No distress noted.
--- NOTE | 2022-09-30 01:40 | NUR ---
[facility] made transportation arrangement back to facility. ETA 1 HR.
--- NOTE | 2022-09-30 02:00 | NUR ---
No change from previous assessment. Transportation pending back to facility.
--- NOTE | 2022-09-30 02:50 | NUR ---
[facility] at bedside for transport. Report given.
[2022-09-30 02:59] VITALS: BP_SYST 129
--- NOTE | 2022-09-30 02:59 | NUR ---
Patient transferred to EMS [facility] and OTD in stable condition to ambulance enroute to [facility].
== END 2022-09-30 02:59 ==
LOC: SED 15:59
DX: S72.111A Displaced fracture of greater trochanter of right femur, initial encounter for closed fracture (principal); K21.9 Gastro-esophageal reflux disease without esophagitis; I11.0 Hypertensive heart disease with heart failure; I50.9 Heart failure, unspecified; Z88.1 Allergy status to other antibiotic agents; Z79.899 Other long term (current) drug therapy; X58.XXXA Exposure to other specified factors, initial encounter; Y93.89 Activity, other specified; Y92.89 Other specified places as the place of occurrence of the external cause; Y99.8 Other external cause status
CPT/HCPCS: 73502; 99283

== ENCOUNTER 2022-11-15 17:31 | Inpatient (IN) | payer OTHER ==
[~2022-11-15] VITALS: Ht 170.2 cm; Wt 96.6 kg
[~2022-11-15 17:31] MED LIST changes: +ACET-73 PO; +ACET325T PO; -CELE-85 PO; -CELE200C PO; -CIPR500T5 PO; -ESCI-6 PO; -GABA300T26; -GABAPENTIN; -LIP20 PO; -OMEP20CA15 PO; -OXYC-158 PO
[2022-11-15 18:23] LABS: BASOPHILS % (AUTO) 0.2 % (0.0-2.0); EOSINOPHILS % (AUTO) 0.2 % (0.0-4.0); HEMATOCRIT 42.7 % (36-54); HEMOGLOBIN 13.9 g/dL (14.0-18.0); LYMPHOCYTES # (AUTO) 0.5 K/uL (1.0-5.5); LYMPHOCYTES % (AUTO) 7.1 % (20.5-51.5); MEAN CORPUSCULAR HEMOGLOBIN 29 pg (27-31); MEAN CORPUSCULAR HGB CONC 33 % (32-36); MEAN CORPUSCULAR VOLUME 89 fL (79.0-98.0); MONOCYTES # (AUTO) 0.1 K/uL (0.0-1.0); NEUTROPHILS # (AUTO) 6.4 K/uL (1.8-7.7); NEUTROPHILS % (AUTO) 90.5 % (40.0-70.0); PLATELET COUNT (AUTO) 110 K/uL (130-430); RED CELL DISTRIBUTION WIDTH 18.3 % (9.0-15.0); WHITE BLOOD COUNT (AUTO) 7.1 K/uL (4.8-10.8)
[2022-11-15 18:36] LABS: INR 1.2 (0.80-1.20)
[2022-11-15 18:41] LABS: ALANINE AMINOTRANSFERASE 47 U/L (12-78); ALBUMIN 3.8 g/dL (3.4-4.8); ANION GAP 13 (5-15); ASPARTATE AMINOTRANSFERASE 46 U/L (10-37); CALCIUM 9.6 mg/dL (8.4-11.0); CHLORIDE 106 mmol/L (98-107); CREATININE 1.95 mg/dL (0.55-1.30); GLUCOSE 146 mg/dL (70-99); TOTAL BILIRUBIN 0.7 mg/dL (0.0-1.0); UREA NITROGEN, BLOOD 23 mg/dL (8-21)
[2022-11-15 19:15] LABS: BILIRUBIN,URINE NEGATIVE (NEGATIVE); BLOOD, URINE 3+ (NEGATIVE); COLOR,URINE YELLOW (YELLOW); GLUCOSE,URINE NEGATIVE (NEGATIVE); KETONES,URINE NEGATIVE (NEGATIVE); LEUKOCYTE ESTERASE ,URINE 1+ (NEGATIVE); NITRITE, URINE POSITIVE (NEGATIVE); PH,URINE 5.5 (5.0-8.0); PROTEIN URINE TRACE (NEGATIVE); UROBILINOGEN,URINE 0.2 (0.2-1.0)
[2022-11-15] MEDS ORDERED: NACL 0.9% 2,000 ML IV ONE (19:15)
[2022-11-15 19:17] LABS: CLARITY/URINE SLIGHTLY HAZY (CLEAR)
[2022-11-15] MEDS ORDERED: 0.45% NACL 1,000 ML IV ONE (19:45)
[2022-11-15 19:50] LABS: BACTERIA,URINE FEW /HPF (None Seen); MUCUS,URINE None Seen /LPF (None Seen); RBC,URINE 20-50 /HPF (0-3); WBC,URINE 20-50 /HPF (0-3)
[2022-11-15 20:09] LABS: ACETONE, SERUM NEGATIVE (NEGATIVE)
[2022-11-15] MEDS ORDERED: CLOP75TA32 PO (20:53)
[2022-11-15] MEDS ORDERED: RIVA15TA PO (20:53)
[2022-11-16 02:03] VITALS: BP_SYST 162
[2022-11-16] MEDS ORDERED: ACETAMINOPHEN 325 MG TABLET PO PRN ×2 (07:00)
[2022-11-16] MEDS ORDERED: ONDANSETRON HCL 4 MG/2 ML VIAL IVP PRN (07:00)
[2022-11-16 07:35] VITALS: BP_SYST 154
[2022-11-16] MEDS: RIVAROXABAN 15 MG TABLET PO SCH (09:00)
[2022-11-16] MEDS ORDERED: BRIMONIDINE TAR. 0.2%/TIMOLOL 0.5% EYE DROPS 5 ML OP SCH (09:00)
[2022-11-16] MEDS ORDERED: OMEPRAZOLE Non-Formulary 20 MG CAPSULE.DR PO SCH (09:00)
[2022-11-16] MEDS ORDERED: cefTRIAXone 1 GM IVPB PREMIX 50 ML IV SCH (09:00)
[2022-11-16] MEDS ORDERED: ESCITALOPRAM OXALATE 10 MG TABLET PO SCH (09:00)
[2022-11-16] MEDS: NACL 0.9% 1,000 ML IV SCH (09:30)
[2022-11-16] MEDS ORDERED: LISINOPRIL 10 MG TABLET (PRINIVIL) PO ONE (10:00)
[2022-11-16] MEDS: cefTRIAXone 1 GM IVPB PREMIX 50 ML IV SCH (10:18)
[2022-11-16] MEDS: CITALOPRAM HYDROBROMIDE 20 MG TABLET PO SCH (10:42)
[2022-11-16] MEDS: ASPIRIN 81 MG TAB.CHEW PO SCH (10:42)
[2022-11-16] MEDS: TAMSULOSIN HCL 0.4 MG CAP PO SCH (10:43)
[2022-11-16] MEDS: FOLIC ACID 1 MG TABLET PO SCH (10:43)
[2022-11-16] MEDS: CARVEDILOL 3.125 MG TABLET (COREG) PO SCH ×2 (10:43→20:41)
[2022-11-16] MEDS: ATORVASTATIN 20 MG TABLET PO SCH (10:43)
[2022-11-16] MEDS: CLOPIDOGREL BISULFATE 75 MG TABLET PO SCH (10:44)
[2022-11-16] MEDS: amLODIPine BESYLATE 5 MG TABLET PO SCH (10:44)
[2022-11-16 11:23] VITALS: BP_SYST 120
[2022-11-16 15:30] VITALS: BP_SYST 110
[2022-11-16 20:00] VITALS: BP_SYST 72
[2022-11-16] MEDS ORDERED: NS 500 ML IV ONE ×2 (20:15→22:15)
[2022-11-16] MEDS ORDERED: ALBUMIN HUMAN 25% 100 ML IV ONE (20:30)
[2022-11-16] MEDS: OLANZapine 5 MG TABLET PO SCH (20:37)
[2022-11-16] MEDS: TIMOLOL MALEATE 0.5% OPHTHALMIC DROPS 5 ML OP SCH (20:38)
[2022-11-16] MEDS: BRIMONIDINE TARTRATE 0.2% 5 mL EYE DROPS OP SCH (20:38)
[2022-11-16] MEDS: LATANOPROST 2.5 ML DROPS (XALATAN) OP SCH (22:16)
[2022-11-17] VITALS (7 sets, daily range): BP systolic 72–129
[2022-11-17] MEDS: NACL 0.9% 1,000 ML IV SCH ×3 (01:51→14:08)
[2022-11-17 07:36] LABS: BASOPHILS % (AUTO) 0.4 % (0.0-2.0); EOSINOPHILS # (AUTO) 0.1 K/uL (0.0-0.4); EOSINOPHILS % (AUTO) 2.1 % (0.0-4.0); HEMATOCRIT 32.6 % (36-54); HEMOGLOBIN 10.8 g/dL (14.0-18.0); LYMPHOCYTES # (AUTO) 1.2 K/uL (1.0-5.5); MEAN CORPUSCULAR HEMOGLOBIN 30 pg (27-31); MEAN CORPUSCULAR HGB CONC 33 % (32-36); MEAN CORPUSCULAR VOLUME 90 fL (79.0-98.0); MONOCYTES # (AUTO) 0.4 K/uL (0.0-1.0); MONOCYTES % (AUTO) 7.7 % (1.7-9.3); NEUTROPHILS # (AUTO) 2.9 K/uL (1.8-7.7); NEUTROPHILS % (AUTO) 63.8 % (40.0-70.0); PLATELET COUNT (AUTO) 79 K/uL (130-430); RED BLOOD CELL COUNT(AUTO) 3.64 MIL/uL (4.2-6.2); RED CELL DISTRIBUTION WIDTH 18.7 % (9.0-15.0); WHITE BLOOD COUNT (AUTO) 4.6 K/uL (4.8-10.8)
[2022-11-17 07:55] LABS: ALANINE AMINOTRANSFERASE 30 U/L (12-78); ANION GAP 8 (5-15); ASPARTATE AMINOTRANSFERASE 30 U/L (10-37); CALCIUM 8.2 mg/dL (8.4-11.0); CHLORIDE 110 mmol/L (98-107); CREATININE 1.63 mg/dL (0.55-1.30); GLUCOSE 83 mg/dL (70-99); TOTAL BILIRUBIN 0.4 mg/dL (0.0-1.0); UREA NITROGEN, BLOOD 20 mg/dL (8-21)
[2022-11-17] MEDS: TIMOLOL MALEATE 0.5% OPHTHALMIC DROPS 5 ML OP SCH ×2 (08:26→21:21)
[2022-11-17] MEDS: BRIMONIDINE TARTRATE 0.2% 5 mL EYE DROPS OP SCH ×2 (08:26→21:21)
[2022-11-17] MEDS: CITALOPRAM HYDROBROMIDE 20 MG TABLET PO SCH (08:27)
[2022-11-17] MEDS: ASPIRIN 81 MG TAB.CHEW PO SCH (08:27)
[2022-11-17] MEDS: amLODIPine BESYLATE 5 MG TABLET PO SCH ×2 (08:27→08:35)
[2022-11-17] MEDS: FOLIC ACID 1 MG TABLET PO SCH (08:27)
[2022-11-17] MEDS: PANTOPRAZOLE SODIUM 40 MG TAB PO SCH (08:27)
[2022-11-17] MEDS: TAMSULOSIN HCL 0.4 MG CAP PO SCH (08:28)
[2022-11-17] MEDS: LISINOPRIL 10 MG TABLET (PRINIVIL) PO SCH ×2 (08:28→08:35)
[2022-11-17] MEDS: CLOPIDOGREL BISULFATE 75 MG TABLET PO SCH (08:28)
[2022-11-17] MEDS: ATORVASTATIN 20 MG TABLET PO SCH (08:28)
[2022-11-17] MEDS: RIVAROXABAN 15 MG TABLET PO SCH (08:29)
[2022-11-17] MEDS: CARVEDILOL 3.125 MG TABLET (COREG) PO SCH ×3 (08:29→21:23)
[2022-11-17] MEDS ORDERED: BENAZEPRIL HCL Non-Formulary 10 MG TABLET PO SCH (09:00)
[2022-11-17] MEDS: cefTRIAXone 1 GM IVPB PREMIX 50 ML IV SCH (10:03)
[2022-11-17] MEDS: LATANOPROST 2.5 ML DROPS (XALATAN) OP SCH (21:22)
[2022-11-17] MEDS: OLANZapine 5 MG TABLET PO SCH (21:22)
[2022-11-18 01:26] VITALS: BP_SYST 116
[2022-11-18] MEDS: NACL 0.9% 1,000 ML IV SCH (02:00)
[2022-11-18 02:06] VITALS: BP_SYST 147
[2022-11-18 07:27] LABS: BASOPHILS % (AUTO) 0.4 % (0.0-2.0); EOSINOPHILS # (AUTO) 0.2 K/uL (0.0-0.4); EOSINOPHILS % (AUTO) 3.9 % (0.0-4.0); HEMATOCRIT 34.1 % (36-54); HEMOGLOBIN 11.4 g/dL (14.0-18.0); LYMPHOCYTES # (AUTO) 1.1 K/uL (1.0-5.5); LYMPHOCYTES % (AUTO) 21.5 % (20.5-51.5); MEAN CORPUSCULAR HEMOGLOBIN 30 pg (27-31); MEAN CORPUSCULAR HGB CONC 33 % (32-36); MEAN CORPUSCULAR VOLUME 89 fL (79.0-98.0); MONOCYTES # (AUTO) 0.4 K/uL (0.0-1.0); MONOCYTES % (AUTO) 8.8 % (1.7-9.3); NEUTROPHILS # (AUTO) 3.2 K/uL (1.8-7.7); NEUTROPHILS % (AUTO) 65.4 % (40.0-70.0); PLATELET COUNT (AUTO) 80 K/uL (130-430); RED BLOOD CELL COUNT(AUTO) 3.85 MIL/uL (4.2-6.2); WHITE BLOOD COUNT (AUTO) 4.9 K/uL (4.8-10.8)
[2022-11-18 08:10] VITALS: BP_SYST 132
[2022-11-18 08:30] LABS: ALANINE AMINOTRANSFERASE 30 U/L (12-78); ANION GAP 8 (5-15); ASPARTATE AMINOTRANSFERASE 32 U/L (10-37); CALCIUM 8.3 mg/dL (8.4-11.0); CHLORIDE 108 mmol/L (98-107); CREATININE 1.45 mg/dL (0.55-1.30); GLUCOSE 80 mg/dL (70-99); TOTAL BILIRUBIN 0.6 mg/dL (0.0-1.0); UREA NITROGEN, BLOOD 16 mg/dL (8-21)
[2022-11-18] MEDS: cefTRIAXone 1 GM IVPB PREMIX 50 ML IV SCH (09:43)
[2022-11-18] MEDS: FOLIC ACID 1 MG TABLET PO SCH (09:44)
[2022-11-18] MEDS: ASPIRIN 81 MG TAB.CHEW PO SCH (09:44)
[2022-11-18] MEDS: ATORVASTATIN 20 MG TABLET PO SCH (09:44)
[2022-11-18] MEDS: CLOPIDOGREL BISULFATE 75 MG TABLET PO SCH (09:44)
[2022-11-18] MEDS: CITALOPRAM HYDROBROMIDE 20 MG TABLET PO SCH (09:45)
[2022-11-18] MEDS: CARVEDILOL 3.125 MG TABLET (COREG) PO SCH ×2 (09:45→21:22)
[2022-11-18] MEDS: TAMSULOSIN HCL 0.4 MG CAP PO SCH (09:46)
[2022-11-18] MEDS: PANTOPRAZOLE SODIUM 40 MG TAB PO SCH (09:46)
[2022-11-18] MEDS: TIMOLOL MALEATE 0.5% OPHTHALMIC DROPS 5 ML OP SCH ×2 (09:47→21:30)
[2022-11-18] MEDS: BRIMONIDINE TARTRATE 0.2% 5 mL EYE DROPS OP SCH ×2 (09:47→21:30)
[2022-11-18] MEDS: RIVAROXABAN 15 MG TABLET PO SCH (09:48)
[2022-11-18 12:54] LABS: BILIRUBIN,URINE NEGATIVE (NEGATIVE); BLOOD, URINE 1+ (NEGATIVE); CLARITY/URINE CLEAR (CLEAR); COLOR,URINE YELLOW (YELLOW); GLUCOSE,URINE NEGATIVE (NEGATIVE); KETONES,URINE NEGATIVE (NEGATIVE); LEUKOCYTE ESTERASE ,URINE TRACE (NEGATIVE); NITRITE, URINE NEGATIVE (NEGATIVE); PROTEIN URINE NEGATIVE (NEGATIVE); UROBILINOGEN,URINE 0.2 (0.2-1.0)
[2022-11-18] MEDS: CIPROFLOXACIN HCL 500 MG TABLET PO SCH ×2 (14:00→21:22)
[2022-11-18 14:10] LABS: BACTERIA,URINE FEW /HPF (None Seen); MUCUS,URINE None Seen /LPF (None Seen); RBC,URINE NONE SEEN /HPF (0-3)
[2022-11-18 15:36] VITALS: BP_SYST 115
[2022-11-18 20:00] VITALS: BP_SYST 131
[2022-11-18] MEDS: OLANZapine 5 MG TABLET PO SCH (21:21)
[2022-11-18] MEDS: LATANOPROST 2.5 ML DROPS (XALATAN) OP SCH (21:29)
[2022-11-19 01:54] VITALS: BP_SYST 142
[2022-11-19 07:44] LABS: BASOPHILS % (AUTO) 0.3 % (0.0-2.0); EOSINOPHILS # (AUTO) 0.1 K/uL (0.0-0.4); EOSINOPHILS % (AUTO) 2.5 % (0.0-4.0); HEMATOCRIT 37.2 % (36-54); HEMOGLOBIN 12.4 g/dL (14.0-18.0); LYMPHOCYTES # (AUTO) 0.9 K/uL (1.0-5.5); LYMPHOCYTES % (AUTO) 16.9 % (20.5-51.5); MEAN CORPUSCULAR HEMOGLOBIN 29 pg (27-31); MEAN CORPUSCULAR HGB CONC 33 % (32-36); MEAN CORPUSCULAR VOLUME 88 fL (79.0-98.0); MONOCYTES # (AUTO) 0.6 K/uL (0.0-1.0); MONOCYTES % (AUTO) 10.9 % (1.7-9.3); NEUTROPHILS # (AUTO) 3.8 K/uL (1.8-7.7); NEUTROPHILS % (AUTO) 69.4 % (40.0-70.0); PLATELET COUNT (AUTO) 81 K/uL (130-430); RED BLOOD CELL COUNT(AUTO) 4.22 MIL/uL (4.2-6.2); RED CELL DISTRIBUTION WIDTH 18.2 % (9.0-15.0); WHITE BLOOD COUNT (AUTO) 5.4 K/uL (4.8-10.8)
[2022-11-19 07:55] VITALS: BP_SYST 104
[2022-11-19 08:03] LABS: ANION GAP 7 (5-15); CALCIUM 8.6 mg/dL (8.4-11.0); CHLORIDE 103 mmol/L (98-107); CREATININE 1.43 mg/dL (0.55-1.30); GLUCOSE 95 mg/dL (70-99); UREA NITROGEN, BLOOD 17 mg/dL (8-21)
[2022-11-19 08:07] LABS: TOTAL IRON BIND. CAPACITY 190 ug/dL (250-450)
[2022-11-19] MEDS: ASPIRIN 81 MG TAB.CHEW PO SCH (09:12)
[2022-11-19] MEDS: CITALOPRAM HYDROBROMIDE 20 MG TABLET PO SCH (09:13)
[2022-11-19] MEDS: ATORVASTATIN 20 MG TABLET PO SCH (09:13)
[2022-11-19] MEDS: PANTOPRAZOLE SODIUM 40 MG TAB PO SCH (09:14)
[2022-11-19] MEDS: FOLIC ACID 1 MG TABLET PO SCH (09:14)
[2022-11-19] MEDS: CLOPIDOGREL BISULFATE 75 MG TABLET PO SCH (09:14)
[2022-11-19] MEDS: RIVAROXABAN 15 MG TABLET PO SCH (09:15)
[2022-11-19] MEDS: TAMSULOSIN HCL 0.4 MG CAP PO SCH (09:21)
[2022-11-19] MEDS: TIMOLOL MALEATE 0.5% OPHTHALMIC DROPS 5 ML OP SCH ×2 (09:22→22:08)
[2022-11-19] MEDS: BRIMONIDINE TARTRATE 0.2% 5 mL EYE DROPS OP SCH ×2 (09:22→22:08)
[2022-11-19] MEDS: CIPROFLOXACIN HCL 500 MG TABLET PO SCH ×2 (09:26→22:05)
[2022-11-19 11:01] VITALS: BP_SYST 126
[2022-11-19] MEDS: CARVEDILOL 3.125 MG TABLET (COREG) PO SCH ×2 (11:53→22:07)
[2022-11-19] MEDS ORDERED: CEFTAZIDIME 1 GM in D5W 50 ML IV ONE (12:45)
[2022-11-19 18:48] VITALS: BP_SYST 110
[2022-11-19 20:30] VITALS: BP_SYST 119
[2022-11-19] MEDS ORDERED: POLYETHYLENE GLYCOL 3350, 17 GM/ POWD.PACK PO PRN (20:30)
[2022-11-19] MEDS: OLANZapine 5 MG TABLET PO SCH (22:05)
[2022-11-19] MEDS: DOCUSATE SODIUM 100 MG CAPSULE PO SCH (22:07)
[2022-11-19] MEDS: CEFTAZIDIME 1 GM in D5W 50 ML IV SCH (22:08)
[2022-11-19] MEDS: LATANOPROST 2.5 ML DROPS (XALATAN) OP SCH (22:08)
[2022-11-20 00:52] VITALS: BP_SYST 127
[2022-11-20 08:00] LABS: BASOPHILS % (AUTO) 0.3 % (0.0-2.0); EOSINOPHILS # (AUTO) 0.1 K/uL (0.0-0.4); EOSINOPHILS % (AUTO) 1.6 % (0.0-4.0); HEMATOCRIT 36.8 % (36-54); HEMOGLOBIN 12.3 g/dL (14.0-18.0); LYMPHOCYTES # (AUTO) 1.1 K/uL (1.0-5.5); LYMPHOCYTES % (AUTO) 17.7 % (20.5-51.5); MEAN CORPUSCULAR HEMOGLOBIN 29 pg (27-31); MEAN CORPUSCULAR HGB CONC 33 % (32-36); MEAN CORPUSCULAR VOLUME 87 fL (79.0-98.0); MONOCYTES # (AUTO) 0.7 K/uL (0.0-1.0); MONOCYTES % (AUTO) 11.4 % (1.7-9.3); NEUTROPHILS # (AUTO) 4.2 K/uL (1.8-7.7); PLATELET COUNT (AUTO) 83 K/uL (130-430); RED BLOOD CELL COUNT(AUTO) 4.23 MIL/uL (4.2-6.2); RED CELL DISTRIBUTION WIDTH 18.6 % (9.0-15.0)
[2022-11-20 08:06] LABS: FOLATE (FOLIC ACID) 16.3 ng/mL (>3.0); PROSTATE SPECIFIC AG 5.3 ng/mL (0.0-4.0)
[2022-11-20 08:18] VITALS: BP_SYST 117
[2022-11-20] MEDS: ASPIRIN 81 MG TAB.CHEW PO SCH (08:28)
[2022-11-20] MEDS: CARVEDILOL 3.125 MG TABLET (COREG) PO SCH ×2 (08:29→22:45)
[2022-11-20] MEDS: CLOPIDOGREL BISULFATE 75 MG TABLET PO SCH (08:29)
[2022-11-20] MEDS: CITALOPRAM HYDROBROMIDE 20 MG TABLET PO SCH (08:29)
[2022-11-20] MEDS: PANTOPRAZOLE SODIUM 40 MG TAB PO SCH (08:29)
[2022-11-20] MEDS: DOCUSATE SODIUM 100 MG CAPSULE PO SCH ×2 (08:30→22:43)
[2022-11-20] MEDS: TAMSULOSIN HCL 0.4 MG CAP PO SCH (08:30)
[2022-11-20] MEDS: ATORVASTATIN 20 MG TABLET PO SCH (08:30)
[2022-11-20] MEDS: FOLIC ACID 1 MG TABLET PO SCH (08:30)
[2022-11-20] MEDS: RIVAROXABAN 15 MG TABLET PO SCH (08:31)
[2022-11-20] MEDS: CEFTAZIDIME 1 GM in D5W 50 ML IV SCH ×2 (08:38→22:46)
[2022-11-20 09:02] LABS: ALANINE AMINOTRANSFERASE 22 U/L (12-78); ANION GAP 10 (5-15); ASPARTATE AMINOTRANSFERASE 20 U/L (10-37); CALCIUM 8.8 mg/dL (8.4-11.0); CHLORIDE 101 mmol/L (98-107); CREATININE 1.47 mg/dL (0.55-1.30); GLUCOSE 106 mg/dL (70-99); TOTAL BILIRUBIN 1.1 mg/dL (0.0-1.0); UREA NITROGEN, BLOOD 18 mg/dL (8-21)
[2022-11-20] MEDS: BRIMONIDINE TARTRATE 0.2% 5 mL EYE DROPS OP SCH ×2 (11:31→22:46)
[2022-11-20] MEDS: CIPROFLOXACIN HCL 500 MG TABLET PO SCH ×2 (11:31→22:45)
[2022-11-20] MEDS: TIMOLOL MALEATE 0.5% OPHTHALMIC DROPS 5 ML OP SCH ×2 (11:32→22:46)
[2022-11-20 12:52] VITALS: BP_SYST 105
[2022-11-20 16:00] VITALS: BP_SYST 112
[2022-11-20 20:00] VITALS: BP_SYST 111
[2022-11-20] MEDS: OLANZapine 5 MG TABLET PO SCH (22:43)
[2022-11-20] MEDS: HYDROcodone/ACETAMIN 5-325 MG TAB (NORCO/ VICODIN) PO PRN (22:44)
[2022-11-20] MEDS: LATANOPROST 2.5 ML DROPS (XALATAN) OP SCH (22:46)
[2022-11-21 01:10] VITALS: BP_SYST 101
[2022-11-21 08:38] VITALS: BP_SYST 119
[2022-11-21] MEDS: DOCUSATE SODIUM 100 MG CAPSULE PO SCH ×2 (09:00→21:52)
[2022-11-21] MEDS: BRIMONIDINE TARTRATE 0.2% 5 mL EYE DROPS OP SCH ×2 (09:28→21:51)
[2022-11-21] MEDS: ATORVASTATIN 20 MG TABLET PO SCH (09:29)
[2022-11-21] MEDS: CIPROFLOXACIN HCL 500 MG TABLET PO SCH (09:29)
[2022-11-21] MEDS: TAMSULOSIN HCL 0.4 MG CAP PO SCH (09:29)
[2022-11-21] MEDS: FOLIC ACID 1 MG TABLET PO SCH (09:29)
[2022-11-21] MEDS: TIMOLOL MALEATE 0.5% OPHTHALMIC DROPS 5 ML OP SCH ×2 (09:29→21:51)
[2022-11-21] MEDS: CLOPIDOGREL BISULFATE 75 MG TABLET PO SCH (09:30)
[2022-11-21] MEDS: CITALOPRAM HYDROBROMIDE 20 MG TABLET PO SCH (09:30)
[2022-11-21] MEDS: ASPIRIN 81 MG TAB.CHEW PO SCH (09:30)
[2022-11-21] MEDS: RIVAROXABAN 15 MG TABLET PO SCH (09:31)
[2022-11-21] MEDS: CARVEDILOL 3.125 MG TABLET (COREG) PO SCH ×2 (09:31→21:00)
[2022-11-21] MEDS: PANTOPRAZOLE SODIUM 40 MG TAB PO SCH (09:31)
[2022-11-21] MEDS: HYDROcodone/ACETAMIN 5-325 MG TAB (NORCO/ VICODIN) PO PRN (09:35)
[2022-11-21] MEDS: CEFTAZIDIME 1 GM in D5W 50 ML IV SCH ×2 (11:20→21:56)
[2022-11-21 11:22] VITALS: BP_SYST 101
[2022-11-21 15:25] VITALS: BP_SYST 97
[2022-11-21 19:00] VITALS: BP_SYST 101
[2022-11-21 20:00] VITALS: BP_SYST 101
[2022-11-21] MEDS: LATANOPROST 2.5 ML DROPS (XALATAN) OP SCH (21:51)
[2022-11-21] MEDS: OLANZapine 5 MG TABLET PO SCH (21:52)
[2022-11-22 03:12] VITALS: BP_SYST 106
[2022-11-22 08:23] VITALS: BP_SYST 129
[2022-11-22] MEDS: DOCUSATE SODIUM 100 MG CAPSULE PO SCH ×2 (09:00→22:14)
[2022-11-22] MEDS: CARVEDILOL 3.125 MG TABLET (COREG) PO SCH ×2 (09:00→21:00)
[2022-11-22] MEDS: CEFTAZIDIME 1 GM in D5W 50 ML IV SCH ×2 (09:11→22:15)
[2022-11-22] MEDS: TAMSULOSIN HCL 0.4 MG CAP PO SCH (10:40)
[2022-11-22] MEDS: TIMOLOL MALEATE 0.5% OPHTHALMIC DROPS 5 ML OP SCH ×2 (10:41→22:16)
[2022-11-22] MEDS: ASPIRIN 81 MG TAB.CHEW PO SCH (10:42)
[2022-11-22] MEDS: RIVAROXABAN 15 MG TABLET PO SCH (10:42)
[2022-11-22] MEDS: PANTOPRAZOLE SODIUM 40 MG TAB PO SCH (10:43)
[2022-11-22] MEDS: ATORVASTATIN 20 MG TABLET PO SCH (10:43)
[2022-11-22] MEDS: FOLIC ACID 1 MG TABLET PO SCH (10:44)
[2022-11-22] MEDS: CITALOPRAM HYDROBROMIDE 20 MG TABLET PO SCH (10:44)
[2022-11-22] MEDS: CLOPIDOGREL BISULFATE 75 MG TABLET PO SCH (10:45)
[2022-11-22] MEDS: BRIMONIDINE TARTRATE 0.2% 5 mL EYE DROPS OP SCH ×2 (10:46→22:16)
[2022-11-22] MEDS: HYDROcodone/ACETAMIN 5-325 MG TAB (NORCO/ VICODIN) PO PRN (10:51)
[2022-11-22 11:23] VITALS: BP_SYST 98
[2022-11-22] MEDS ORDERED: CIPR250T4 PO (14:37)
[2022-11-22 15:57] VITALS: BP_SYST 93
[2022-11-22 19:45] VITALS: BP_SYST 108
[2022-11-22] MEDS: OLANZapine 5 MG TABLET PO SCH (22:14)
[2022-11-22] MEDS: LATANOPROST 2.5 ML DROPS (XALATAN) OP SCH (22:15)
[2022-11-22] MEDS: CIPROFLOXACIN HCL 500 MG TABLET PO SCH (22:17)
[2022-11-23] VITALS: BP_SYST 112
[2022-11-23 06:16] LABS: BASOPHILS % (AUTO) 0.7 % (0.0-2.0); EOSINOPHILS # (AUTO) 0.2 K/uL (0.0-0.4); EOSINOPHILS % (AUTO) 4.6 % (0.0-4.0); HEMATOCRIT 39.5 % (36-54); HEMOGLOBIN 13.3 g/dL (14.0-18.0); LYMPHOCYTES # (AUTO) 1.1 K/uL (1.0-5.5); LYMPHOCYTES % (AUTO) 25.4 % (20.5-51.5); MEAN CORPUSCULAR HEMOGLOBIN 30 pg (27-31); MEAN CORPUSCULAR HGB CONC 34 % (32-36); MEAN CORPUSCULAR VOLUME 88 fL (79.0-98.0); MONOCYTES # (AUTO) 0.4 K/uL (0.0-1.0); MONOCYTES % (AUTO) 9.1 % (1.7-9.3); NEUTROPHILS # (AUTO) 2.7 K/uL (1.8-7.7); NEUTROPHILS % (AUTO) 60.2 % (40.0-70.0); PLATELET COUNT (AUTO) 87 K/uL (130-430); RED CELL DISTRIBUTION WIDTH 18.1 % (9.0-15.0); WHITE BLOOD COUNT (AUTO) 4.4 K/uL (4.8-10.8)
[2022-11-23 07:26] LABS: ALANINE AMINOTRANSFERASE 24 U/L (12-78); ALBUMIN 2.8 g/dL (3.4-4.8); ANION GAP 9 (5-15); ASPARTATE AMINOTRANSFERASE 31 U/L (10-37); CALCIUM 9.1 mg/dL (8.4-11.0); CHLORIDE 98 mmol/L (98-107); CREATININE 1.36 mg/dL (0.55-1.30); GLUCOSE 102 mg/dL (70-99); TOTAL BILIRUBIN 0.5 mg/dL (0.0-1.0); UREA NITROGEN, BLOOD 24 mg/dL (8-21)
[2022-11-23 08:55] VITALS: BP_SYST 106
[2022-11-23] MEDS: CARVEDILOL 3.125 MG TABLET (COREG) PO SCH ×2 (09:00→09:06)
[2022-11-23] MEDS: FOLIC ACID 1 MG TABLET PO SCH (09:05)
[2022-11-23] MEDS: DOCUSATE SODIUM 100 MG CAPSULE PO SCH (09:05)
[2022-11-23] MEDS: PANTOPRAZOLE SODIUM 40 MG TAB PO SCH (09:05)
[2022-11-23] MEDS: CITALOPRAM HYDROBROMIDE 20 MG TABLET PO SCH (09:05)
[2022-11-23] MEDS: TAMSULOSIN HCL 0.4 MG CAP PO SCH (09:05)
[2022-11-23] MEDS: RIVAROXABAN 15 MG TABLET PO SCH (09:05)
[2022-11-23] MEDS: CLOPIDOGREL BISULFATE 75 MG TABLET PO SCH (09:06)
[2022-11-23] MEDS: ATORVASTATIN 20 MG TABLET PO SCH (09:06)
[2022-11-23] MEDS: ASPIRIN 81 MG TAB.CHEW PO SCH (09:06)
[2022-11-23] MEDS: CEFTAZIDIME 1 GM in D5W 50 ML IV SCH (09:06)
[2022-11-23] MEDS: TIMOLOL MALEATE 0.5% OPHTHALMIC DROPS 5 ML OP SCH (09:07)
[2022-11-23] MEDS: BRIMONIDINE TARTRATE 0.2% 5 mL EYE DROPS OP SCH (09:07)
[2022-11-23] MEDS: CIPROFLOXACIN HCL 500 MG TABLET PO SCH (10:55)
[2022-11-23 11:26] VITALS: BP_SYST 94
[2022-11-23] MEDS: HYDROcodone/ACETAMIN 5-325 MG TAB (NORCO/ VICODIN) PO PRN (13:09)
== END 2022-11-23 14:35 | disposition home health service (06) | DRG 682 ==
LOC: SED 17:31 → STU 19:43 → SMU 11-20 14:51
PROVIDERS: ADMIT Internal Medicine; ATTEND Internal Medicine
DX: N17.0 Acute kidney failure with tubular necrosis (principal); G93.41 Metabolic encephalopathy; N39.0 Urinary tract infection, site not specified; I48.20 Chronic atrial fibrillation, unspecified; D61.818 Other pancytopenia; E86.0 Dehydration; H40.9 Unspecified glaucoma; K21.9 Gastro-esophageal reflux disease without esophagitis; I12.9 Hypertensive chronic kidney disease with stage 1 through stage 4 chronic kidney disease, or unspecified chronic kidney disease; N18.32 Chronic kidney disease, stage 3b; B96.5 Pseudomonas (aeruginosa) (mallei) (pseudomallei) as the cause of diseases classified elsewhere; Z96.643 Presence of artificial hip joint, bilateral; Z96.653 Presence of artificial knee joint, bilateral; M19.90 Unspecified osteoarthritis, unspecified site; R53.81 Other malaise; Z20.822 Contact with and (suspected) exposure to COVID-19; E78.5 Hyperlipidemia, unspecified; N40.0 Benign prostatic hyperplasia without lower urinary tract symptoms; I25.10 Atherosclerotic heart disease of native coronary artery without angina pectoris; I25.2 Old myocardial infarction; Z79.01 Long term (current) use of anticoagulants; Z85.46 Personal history of malignant neoplasm of prostate; Z90.49 Acquired absence of other specified parts of digestive tract; Z92.3 Personal history of irradiation; Z88.1 Allergy status to other antibiotic agents; Z79.2 Long term (current) use of antibiotics; Z79.82 Long term (current) use of aspirin; Z79.899 Other long term (current) drug therapy
CPT/HCPCS: 36415; 71045; 76700-TC; 76770; 76870-TC; 80048; 80053; 81000; 82009; 82272; 82550; 82570; 82607; 82728; 82746; 83540; 83550; 83605; 83880; 84153; 84302; 84484; 85025; 85610-TC; 85730-TC; 87040; 87086; 93005; 93306; 96361; 96365; 97110-GP; 97112-GP; 97116-GP; 97163-GP; 97530-GP; 99285; G0378; J0696; J0713; J1956; J7060

== ENCOUNTER 2023-01-21 19:40 | Emergency (ER) | payer OTHER ==
[~2023-01-21] VITALS: Ht 172.7 cm; Wt 97.5 kg
[~2023-01-21 19:40] MED LIST changes: +CIPR250T4 PO; +CLOP75TA32 PO; +RIVA15TA PO
[2023-01-21 19:53] VITALS: BP_SYST 116
[2023-01-21] MEDS ORDERED: MORPHINE 4 MG INJ. 4 MG/ML VIAL IVP ONE ×2 (20:15→21:15)
[2023-01-21] MEDS ORDERED: NACL 0.9% 1,000 ML IV ONE (20:15)
[2023-01-21] MEDS ORDERED: ONDANSETRON HCL 4 MG/2 ML VIAL IVP ONE (20:15)
[2023-01-21 20:50] LABS: BASOPHILS % (AUTO) 0.4 % (0.0-2.0); EOSINOPHILS % (AUTO) 0.6 % (0.0-4.0); HEMATOCRIT 38.8 % (36-54); HEMOGLOBIN 13.1 g/dL (14.0-18.0); LYMPHOCYTES # (AUTO) 1.1 K/uL (1.0-5.5); LYMPHOCYTES % (AUTO) 13.3 % (20.5-51.5); MEAN CORPUSCULAR HEMOGLOBIN 31 pg (27-31); MEAN CORPUSCULAR HGB CONC 34 % (32-36); MEAN CORPUSCULAR VOLUME 91 fL (79.0-98.0); MONOCYTES # (AUTO) 0.7 K/uL (0.0-1.0); MONOCYTES % (AUTO) 9.1 % (1.7-9.3); NEUTROPHILS # (AUTO) 6.2 K/uL (1.8-7.7); NEUTROPHILS % (AUTO) 76.6 % (40.0-70.0); PLATELET COUNT (AUTO) 110 K/uL (130-430); RED BLOOD CELL COUNT(AUTO) 4.28 MIL/uL (4.2-6.2); WHITE BLOOD COUNT (AUTO) 8.1 K/uL (4.8-10.8)
[2023-01-21 20:55] LABS: ANION GAP 10 (5-15); CALCIUM 8.8 mg/dL (8.4-11.0); CHLORIDE 104 mmol/L (98-107); CREATININE 1.26 mg/dL (0.55-1.30); GLUCOSE 128 mg/dL (70-99); UREA NITROGEN, BLOOD 17 mg/dL (8-21)
[2023-01-21 21:00] LABS: ALANINE AMINOTRANSFERASE 15 U/L (12-78); ALBUMIN 3.5 g/dL (3.4-4.8); ASPARTATE AMINOTRANSFERASE 27 U/L (10-37)
[2023-01-22 00:31] LABS: BILIRUBIN,URINE NEGATIVE (NEGATIVE); BLOOD, URINE NEGATIVE (NEGATIVE); CLARITY/URINE CLEAR (CLEAR); COLOR,URINE YELLOW (YELLOW); GLUCOSE,URINE NEGATIVE (NEGATIVE); KETONES,URINE NEGATIVE (NEGATIVE); LEUKOCYTE ESTERASE ,URINE NEGATIVE (NEGATIVE); NITRITE, URINE NEGATIVE (NEGATIVE); PROTEIN URINE TRACE (NEGATIVE); UROBILINOGEN,URINE 0.2 (0.2-1.0)
[2023-01-22] MEDS ORDERED: LIDO1ADH71 TD (01:19)
[2023-01-22] MEDS ORDERED: ACET-2634 PO (01:19)
[2023-01-22] MEDS ORDERED: OXYC-128 PO (01:19)
[2023-01-22 01:45] VITALS: BP_SYST 130
== END 2023-01-22 01:45 | disposition home or self-care (01) ==
LOC: SED 19:40
DX: S32.019A Unspecified fracture of first lumbar vertebra, initial encounter for closed fracture (principal); S32.049A Unspecified fracture of fourth lumbar vertebra, initial encounter for closed fracture; I48.91 Unspecified atrial fibrillation; R51.9 Headache, unspecified; I25.10 Atherosclerotic heart disease of native coronary artery without angina pectoris; K21.9 Gastro-esophageal reflux disease without esophagitis; I10 Essential (primary) hypertension; Z88.1 Allergy status to other antibiotic agents; Z79.82 Long term (current) use of aspirin; W19.XXXA Unspecified fall, initial encounter; Y93.89 Activity, other specified; Y92.89 Other specified places as the place of occurrence of the external cause; Y99.8 Other external cause status
CPT/HCPCS: 99285; 70450; 96374; 96361; 96375; 80053; 85025; 36415; 93005; 72100; 76376; 74177; 96376; 81003; J2405; J2270; Q9967; J7030

== ENCOUNTER 2023-07-12 20:48 | Inpatient (IN) | payer OTHER ==
[~2023-07-12] VITALS: Ht 170.2 cm; Wt 104.3 kg
[~2023-07-12 20:48] MED LIST changes: +ACET-2634 PO; +LIDO1ADH71 TD; +OXYC-128 PO
[2023-07-12 20:57] VITALS: BP_SYST 93; PULSE 108; RESP 16; TEMP 96.8; O2SAT 96
[2023-07-12 21:42] LABS: BASOPHILS % (AUTO) 0.3 % (0.0-2.0); EOSINOPHILS % (AUTO) 0.1 % (0.0-4.0); HEMATOCRIT 44.8 % (36-54); HEMOGLOBIN 14.4 g/dL (14.0-18.0); LYMPHOCYTES # (AUTO) 0.6 K/uL (1.0-5.5); MEAN CORPUSCULAR HEMOGLOBIN 30 pg (27-31); MEAN CORPUSCULAR HGB CONC 32 % (32-36); MEAN CORPUSCULAR VOLUME 94 fL (79.0-98.0); MONOCYTES # (AUTO) 0.2 K/uL (0.0-1.0); MONOCYTES % (AUTO) 2.5 % (1.7-9.3); NEUTROPHILS # (AUTO) 8.5 K/uL (1.8-7.7); NEUTROPHILS % (AUTO) 91.1 % (40.0-70.0); PLATELET COUNT (AUTO) 160 K/uL (130-430); RED BLOOD CELL COUNT(AUTO) 4.75 MIL/uL (4.2-6.2); RED CELL DISTRIBUTION WIDTH 13.5 % (9.0-15.0); WHITE BLOOD COUNT (AUTO) 9.3 K/uL (4.8-10.8)
[2023-07-12 22:08] LABS: ANION GAP 12 (5-15); CALCIUM 9.8 mg/dL (8.4-11.0); CARBON DIOXIDE 25 mmol/L (23-29); CHLORIDE 104 mmol/L (98-107); CREATININE 2.24 mg/dL (0.55-1.30); GLUCOSE 176 mg/dL (74-106); SODIUM SERUM 141 mmol/L (136-145); UREA NITROGEN, BLOOD 27 mg/dL (8-21)
[2023-07-12 22:15] LABS: TOTAL BILIRUBIN 0.4 mg/dL (0.0-1.0)
[2023-07-12 22:16] LABS: ALANINE AMINOTRANSFERASE 28 U/L (12-78); ALBUMIN 3.8 g/dL (3.4-4.8); ASPARTATE AMINOTRANSFERASE 27 U/L (10-37); TOTAL PROTEIN, SERUM 7.3 g/dL (6.4-8.3)
[2023-07-12 22:57] LABS: BILIRUBIN,URINE NEGATIVE (NEGATIVE); BLOOD, URINE 1+ (NEGATIVE); COLOR,URINE YELLOW (YELLOW); GLUCOSE,URINE NEGATIVE (NEGATIVE); KETONES,URINE TRACE (NEGATIVE); LEUKOCYTE ESTERASE ,URINE 2+ (NEGATIVE); NITRITE, URINE NEGATIVE (NEGATIVE); PROTEIN URINE 2+ (NEGATIVE); UROBILINOGEN,URINE 0.2 (0.2-1.0)
[2023-07-12] MEDS ORDERED: PIPERACILLIN/TAZOBACTAM 3.375 GM/VIAL (ZOSYN) IV ONE (22:58)
[2023-07-12] MEDS ORDERED: NACL 0.9% 1,000 ML IV ONE (23:00)
[2023-07-12] MEDS ORDERED: PIPERACILLIN/TAZO 3.375 GM in NS 50 ML IV ONE (23:00)
[2023-07-12 23:01] LABS: CLARITY/URINE SLIGHTLY CLOUDY (CLEAR)
[2023-07-12 23:19] LABS: BACTERIA,URINE MANY /HPF (None Seen); WBC,URINE >100 /HPF (0-3)
[2023-07-13] MEDS ORDERED: CARV3.1246 PO ×2 (01:18→17:33)
[2023-07-13] MEDS ORDERED: OLAN2.5T29 PO (01:20)
[2023-07-13] MEDS ORDERED: CELE200C PO (01:23)
[2023-07-13] MEDS ORDERED: ESCI20TA PO ×2 (01:29→17:33)
[2023-07-13 04:59] VITALS: BP_SYST 187; PULSE 65; RESP 18; TEMP 97.6; O2SAT 97
[2023-07-13 05:18] VITALS: BP_SYST 187; PULSE 65; RESP 18; TEMP 97.6; O2SAT 97
[2023-07-13 05:31] LABS: BASOPHILS # (AUTO) 0.1 K/uL (0.0-0.2); BASOPHILS % (AUTO) 0.7 % (0.0-2.0); EOSINOPHILS % (AUTO) 0.4 % (0.0-4.0); HEMATOCRIT 41.3 % (36-54); HEMOGLOBIN 13.4 g/dL (14.0-18.0); LYMPHOCYTES # (AUTO) 1.1 K/uL (1.0-5.5); LYMPHOCYTES % (AUTO) 15.2 % (20.5-51.5); MEAN CORPUSCULAR HEMOGLOBIN 30 pg (27-31); MEAN CORPUSCULAR HGB CONC 32 % (32-36); MEAN CORPUSCULAR VOLUME 94 fL (79.0-98.0); MONOCYTES # (AUTO) 0.7 K/uL (0.0-1.0); MONOCYTES % (AUTO) 8.7 % (1.7-9.3); NEUTROPHILS # (AUTO) 5.6 K/uL (1.8-7.7); PLATELET COUNT (AUTO) 144 K/uL (130-430); RED BLOOD CELL COUNT(AUTO) 4.42 MIL/uL (4.2-6.2); RED CELL DISTRIBUTION WIDTH 13.7 % (9.0-15.0); WHITE BLOOD COUNT (AUTO) 7.5 K/uL (4.8-10.8)
[2023-07-13 05:49] LABS: ALANINE AMINOTRANSFERASE 25 U/L (12-78); ALBUMIN 3.4 g/dL (3.4-4.8); ANION GAP 6 (5-15); ASPARTATE AMINOTRANSFERASE 24 U/L (10-37); CALCIUM 9.3 mg/dL (8.4-11.0); CARBON DIOXIDE 27 mmol/L (23-29); CHLORIDE 103 mmol/L (98-107); CREATININE 1.87 mg/dL (0.55-1.30); GLUCOSE 119 mg/dL (74-106); POTASSIUM 4.6 mmol/L (3.5-5.1); SODIUM SERUM 136 mmol/L (136-145); TOTAL BILIRUBIN 0.3 mg/dL (0.0-1.0); TOTAL PROTEIN, SERUM 6.6 g/dL (6.4-8.3); UREA NITROGEN, BLOOD 28 mg/dL (8-21)
[2023-07-13] MEDS: D5/0.45 NS 1,000 ML IV SCH (06:45)
[2023-07-13 08:00] VITALS: BP_SYST 162; PULSE 66; RESP 18; TEMP 98.9; O2SAT 100; O2SAT 98
[2023-07-13] MEDS: NIFEdipine 30 MG TAB.ER.24 PO SCH (10:13)
[2023-07-13] MEDS: cefTRIAXone 1 GM IVPB PREMIX 50 ML IV SCH (11:15)
[2023-07-13 12:19] VITALS: BP_SYST 158; PULSE 68; RESP 17; TEMP 98.2; O2SAT 98
[2023-07-13 13:48] LABS: BASOPHILS % (AUTO) 0.5 % (0.0-2.0); EOSINOPHILS # (AUTO) 0.1 K/uL (0.0-0.4); EOSINOPHILS % (AUTO) 0.9 % (0.0-4.0); HEMATOCRIT 39.6 % (36-54); HEMOGLOBIN 13.1 g/dL (14.0-18.0); LYMPHOCYTES % (AUTO) 13.5 % (20.5-51.5); MEAN CORPUSCULAR HEMOGLOBIN 31 pg (27-31); MEAN CORPUSCULAR HGB CONC 33 % (32-36); MEAN CORPUSCULAR VOLUME 93 fL (79.0-98.0); MONOCYTES # (AUTO) 0.6 K/uL (0.0-1.0); MONOCYTES % (AUTO) 7.8 % (1.7-9.3); NEUTROPHILS # (AUTO) 5.9 K/uL (1.8-7.7); NEUTROPHILS % (AUTO) 77.3 % (40.0-70.0); PLATELET COUNT (AUTO) 124 K/uL (130-430); RED BLOOD CELL COUNT(AUTO) 4.26 MIL/uL (4.2-6.2); RED CELL DISTRIBUTION WIDTH 13.7 % (9.0-15.0); WHITE BLOOD COUNT (AUTO) 7.6 K/uL (4.8-10.8)
[2023-07-13 13:55] LABS: ANION GAP 10 (5-15); CARBON DIOXIDE 25 mmol/L (23-29); CHLORIDE 106 mmol/L (98-107); CREATININE 1.62 mg/dL (0.55-1.30); GLUCOSE 106 mg/dL (74-106); POTASSIUM 3.9 mmol/L (3.5-5.1); SODIUM SERUM 141 mmol/L (136-145); UREA NITROGEN, BLOOD 25 mg/dL (8-21)
[2023-07-13 16:17] VITALS: BP_SYST 159; PULSE 65; RESP 18; TEMP 98.8; O2SAT 99
[2023-07-13] MEDS ORDERED: OLAN5TAB71 PO (17:33)
[2023-07-13] MEDS ORDERED: BUPR300T55 PO (17:33)
[2023-07-13] MEDS ORDERED: DORZ1DRO7 OP (17:33)
[2023-07-13] MEDS ORDERED: TYLL650 PO (17:33)
[2023-07-13] MEDS ORDERED: TAMS0.4C96 PO (17:33)
[2023-07-13] MEDS ORDERED: XALEYE OP (17:33)
[2023-07-13] MEDS ORDERED: LIP40 PO (17:33)
[2023-07-13] MEDS ORDERED: OMEP40CA20 PO (17:33)
[2023-07-13] MEDS ORDERED: MULT-300 PO (17:33)
[2023-07-13] MEDS ORDERED: BENA40TA89 PO (17:33)
[2023-07-13] MEDS ORDERED: AMLO10TA88 PO (17:35)
[2023-07-13 20:00] VITALS: BP_SYST 143; PULSE 75; RESP 20; TEMP 97.8; O2SAT 97; O2SAT 98
[2023-07-14 00:25] VITALS: BP_SYST 143; PULSE 83; RESP 19; TEMP 97.6; O2SAT 95
[2023-07-14] MEDS: D5/0.45 NS 1,000 ML IV SCH (00:37)
[2023-07-14 05:24] LABS: BASOPHILS % (AUTO) 0.4 % (0.0-2.0); EOSINOPHILS # (AUTO) 0.1 K/uL (0.0-0.4); EOSINOPHILS % (AUTO) 1.6 % (0.0-4.0); HEMATOCRIT 41.2 % (36-54); HEMOGLOBIN 13.4 g/dL (14.0-18.0); LYMPHOCYTES # (AUTO) 1.5 K/uL (1.0-5.5); MEAN CORPUSCULAR HEMOGLOBIN 30 pg (27-31); MEAN CORPUSCULAR HGB CONC 32 % (32-36); MEAN CORPUSCULAR VOLUME 93 fL (79.0-98.0); MONOCYTES # (AUTO) 0.5 K/uL (0.0-1.0); MONOCYTES % (AUTO) 6.9 % (1.7-9.3); NEUTROPHILS # (AUTO) 5.3 K/uL (1.8-7.7); NEUTROPHILS % (AUTO) 71.1 % (40.0-70.0); PLATELET COUNT (AUTO) 134 K/uL (130-430); RED BLOOD CELL COUNT(AUTO) 4.42 MIL/uL (4.2-6.2); RED CELL DISTRIBUTION WIDTH 13.7 % (9.0-15.0); WHITE BLOOD COUNT (AUTO) 7.5 K/uL (4.8-10.8)
[2023-07-14 05:33] LABS: ANION GAP 8 (5-15); CALCIUM 9.1 mg/dL (8.4-11.0); CARBON DIOXIDE 27 mmol/L (23-29); CHLORIDE 104 mmol/L (98-107); CREATININE 1.37 mg/dL (0.55-1.30); GLUCOSE 108 mg/dL (74-106); POTASSIUM 4.1 mmol/L (3.5-5.1); SODIUM SERUM 139 mmol/L (136-145); UREA NITROGEN, BLOOD 20 mg/dL (8-21)
[2023-07-14 08:00] VITALS: O2SAT 97
[2023-07-14] MEDS: cefTRIAXone 1 GM IVPB PREMIX 50 ML IV SCH (09:37)
[2023-07-14] MEDS: NIFEdipine 30 MG TAB.ER.24 PO SCH (09:59)
[2023-07-14] MEDS ORDERED: VALS160T2 PO (11:05)
[2023-07-14] MEDS ORDERED: LEVO250T73 PO (11:06)
[2023-07-14 12:00] VITALS: BP_SYST 129; PULSE 75; RESP 12; TEMP 98.4; O2SAT 96
[2023-07-14 16:00] VITALS: BP_SYST 138; PULSE 93; RESP 12; TEMP 98.1; O2SAT 95
[2023-07-14 17:20] VITALS: BP_SYST 138; PULSE 93; RESP 16; TEMP 98.1; O2SAT 96
== END 2023-07-14 18:30 | disposition home health service (06) | DRG 689 ==
LOC: SED 20:48 → SMU 07-13 04:14
PROVIDERS: ADMIT Specialist; ATTEND Specialist
DX: N30.00 Acute cystitis without hematuria (principal); G93.41 Metabolic encephalopathy; N17.9 Acute kidney failure, unspecified; S32.9XXA Fracture of unspecified parts of lumbosacral spine and pelvis, initial encounter for closed fracture; I25.10 Atherosclerotic heart disease of native coronary artery without angina pectoris; I48.91 Unspecified atrial fibrillation; K21.9 Gastro-esophageal reflux disease without esophagitis; E78.5 Hyperlipidemia, unspecified; N40.0 Benign prostatic hyperplasia without lower urinary tract symptoms; E87.5 Hyperkalemia; I12.9 Hypertensive chronic kidney disease with stage 1 through stage 4 chronic kidney disease, or unspecified chronic kidney disease; N18.9 Chronic kidney disease, unspecified; Z90.49 Acquired absence of other specified parts of digestive tract; Z95.1 Presence of aortocoronary bypass graft; Z85.46 Personal history of malignant neoplasm of prostate; Z87.442 Personal history of urinary calculi
CPT/HCPCS: 36415; 71045; 76770; 80048; 80053; 81000; 81001; 81015; 83605; 85025; 87040; 87086; 93005; 96365; 99291; J0696; J2543